=== PATIENT | male | born 1995 | race Caucasian/White ===

== ENCOUNTER → 2016-10-20 | Outpatient (CLI) | payer BC ==
[2016-10-20 10:58] LABS: Urine RBC None Seen /hpf (0 - 3)
[2016-10-20 11:11] LABS: Basophils # (auto) 0 uL; Basophils % (auto) 0.4 % (0.0-2.0); Eosinophils # (auto) 0.2 uL; Eosinophils % (auto) 2.9 % (0.0-7.0); Hematocrit 47.1 % (41.0-53.0); Hemoglobin 15.9 g/dL (13.5-17.5); Lymphocytes # (auto) 2.9 uL; Lymphocytes % (auto) 35.8 % (10.0-50.0); Mean Corpuscular Hemoglobin 31.4 pg (28.0-32.0); Mean Corpuscular Hgb Conc. 33.7 g/dL (32.0-36.0); Mean Corpuscular Volume 93.1 fL (80.0-100.0); Mean Platelet Volume 9.2 fL (7.4-10.4); Monocytes # (auto) 0.5 uL; Monocytes % (auto) 6.1 % (0.0-12.0); Neutrophils # (auto) 4.5 uL; Neutrophils % (auto) 54.8 % (37.0-80.0); Platelet Count (auto) 299 10^3/uL (140-450); Red Cell Distribution Width 13.8 % (11.6-16.0); White Blood Cell 8.2 10^3/uL (4.4-10.8)
[2016-10-20 11:17] LABS: Urine Bilirubin Negative (Negative); Urine Blood Negative /uL (Negative); Urine Color Yellow (Yellow); Urine Glucose Normal (Normal); Urine Ketone Negative (Negative); Urine Mucus FEW (None Seen); Urine Nitrite Negative (Negative); Urine Squamous Epithelial Cell FEW /hpf (<5); Urine Urobilinogen Normal (Negative); Urine pH 5.5 (5.0-8.0)
[2016-10-20 11:45] LABS: Albumin 3.8 g/dL (3.4-5.0); BUN/Creatinine Ratio 9.3; Bilirubin, Total 0.5 mg/dL (0.2-1.0); Calcium 9.1 mg/dL (8.5-10.1); Potassium 4.2 mmol/L (3.5-5.1); Total Protein 7.3 g/dL (6.4-8.2)
== END | disposition home or self-care (01) ==
LOC: LAB 10:28
PROVIDERS: ATTEND Internal Medicine
DX: N39.0 Urinary tract infection, site not specified (principal); E05.90 Thyrotoxicosis, unspecified without thyrotoxic crisis or storm
CPT/HCPCS: 36415; 80053; 81001; 83036; 84439; 84443; 84481; 85025

== ENCOUNTER 2017-04-02 04:23 | Emergency (ER) | payer BC ==
[~2017-04-02] VITALS: Ht 172.7 cm; Wt 131.5 kg
[2017-04-02 06:45] LABS: Urine RBC None Seen /hpf (0 - 3)
[2017-04-02 06:53] LABS: Basophils # (auto) 0 uL; Basophils % (auto) 0.2 % (0.0-2.0); CONDITION Y; Eosinophils # (auto) 0.1 uL; Eosinophils % (auto) 0.5 % (0.0-7.0); Hematocrit 45.3 % (41.0-53.0); Hemoglobin 15.7 g/dL (13.5-17.5); Lymphocytes # (auto) 1.9 uL; Lymphocytes % (auto) 15.1 % (10.0-50.0); Mean Corpuscular Hemoglobin 32.2 pg (28.0-32.0); Mean Corpuscular Hgb Conc. 34.6 g/dL (32.0-36.0); Mean Corpuscular Volume 93.1 fL (80.0-100.0); Mean Platelet Volume 10.2 fL (7.4-10.4); Monocytes # (auto) 0.5 uL; Monocytes % (auto) 4.4 % (0.0-12.0); Neutrophils # (auto) 9.9 uL; Neutrophils % (auto) 79.8 % (37.0-80.0); Platelet Count (auto) 275 10^3/uL (140-450); Red Cell Distribution Width 14.1 % (11.6-16.0); White Blood Cell 12.4 10^3/uL (4.4-10.8)
[2017-04-02 07:07] LABS: INR 0.95 (0.9-1.15); Partial Thromboplastin Time 26.5 sec (22.64-33.71); Prothrombin Time 10.4 sec (9.37-12.3)
[2017-04-02 07:12] LABS: Albumin 4.2 g/dL (3.4-5.0); Amylase 33 U/L (25-115); Anion Gap 12 (5-15); Aspartate Aminotransferase 11 U/L (15-37); BUN/Creatinine Ratio 7.7; Blood Urea Nitrogen 11 mg/dL (7-18); Calcium 9.2 mg/dL (8.5-10.1); Carbon Dioxide 23 mmol/L (21-32); Chloride 107 mmol/L (98-107); GFR African American 80 mL/min; GFR Non-African American 66 mL/min; Glucose 118 mg/dL (74-106); Magnesium 2.2 mg/dL (1.6-2.6); Potassium 4.1 mmol/L (3.5-5.1); Sodium 142 mmol/L (136-145)
[2017-04-02 07:17] VITALS: BP 149/96
[2017-04-02 07:17] LABS: Alkaline Phosphatase 54 U/L (45-117); Bilirubin, Total 0.5 mg/dL (0.2-1.0); Total Protein 7.6 g/dL (6.4-8.2)
[2017-04-02 07:32] LABS: Urine Blood Negative /uL (Negative); Urine Color Yellow (Yellow); Urine Glucose Normal (Normal); Urine Mucus FEW (None Seen); Urine Nitrite Negative (Negative); Urine pH 5.5 (5.0-8.0)
[2017-04-02 07:33] LABS: Urine Ketone 1+ (Negative)
[2017-04-02 07:35] LABS: Urine Bilirubin Negative (Negative)
[2017-04-02] MEDS ORDERED: KETOROLAC TROMETH 30 MG/ML 1ML VIAL IV ONE (08:00)
[2017-04-02] MEDS ORDERED: SODIUM CHLORIDE 0.9% 1,000 ML IV ONE (08:00)
== END 2017-04-02 09:06 | disposition home or self-care (01) ==
LOC: ER 04:29
DX: N20.0 Calculus of kidney (principal); Z88.0 Allergy status to penicillin
CPT/HCPCS: 36415; 74176; 80053; 81001; 82150; 83690; 83735; 84484; 85025; 85610; 85730; 96361; 96374; 99285; J1885

== ENCOUNTER 2019-05-13 04:51 | Emergency (ER) | payer BC, MEDICAID ==
[~2019-05-13] VITALS: Ht 175.3 cm; Wt 131.5 kg
[2019-05-13] MEDS ORDERED: SODIUM CHLORIDE 0.9% 1,000 ML IV ONE (05:13)
[2019-05-13] MEDS ORDERED: LORazepam 2MG/ML-1ML VIAL IV ONE (05:15)
[2019-05-13] MEDS ORDERED: IOHEXOL 350 MG/ML 100ML IJ ONE (05:54)
[2019-05-13 06:11] LABS: Basophils # (auto) 0.1 uL; Basophils % (auto) 0.6 % (0.0-2.0); Eosinophils # (auto) 0.4 uL; Eosinophils % (auto) 3.4 % (0.0-7.0); Hemoglobin 15.4 g/dL (13.5-17.5); Lymphocytes # (auto) 4.5 uL; Lymphocytes % (auto) 39.9 % (10.0-50.0); Mean Corpuscular Hemoglobin 31.9 pg (28.0-32.0); Mean Corpuscular Hgb Conc. 34.2 g/dL (32.0-36.0); Mean Corpuscular Volume 93.5 fL (80.0-100.0); Monocytes # (auto) 0.6 uL; Monocytes % (auto) 5.2 % (0.0-12.0); Neutrophils # (auto) 5.8 uL; Neutrophils % (auto) 50.9 % (37.0-80.0); Nucleated Red Blood Cells % 0.2 %; Platelet Count (auto) 245 10^3/uL (140-450); Red Blood Cells 4.81 10^6/uL (4.5-5.90); White Blood Cell 11.4 10^3/uL (4.4-10.8)
[2019-05-13 06:14] LABS: Urine Bacteria NONE SEEN /hpf (None Seen); Urine Blood Negative /uL (Negative); Urine Mucus FEW (None Seen); Urine Specific Gravity 1.022 (1.001-1.035); Urine WBC <1 /hpf (0 - 3)
[2019-05-13 06:25] LABS: INR < 0.93 (0.9-1.15); Partial Thromboplastin Time 27.2 sec (23.64-32.05)
[2019-05-13 06:36] LABS: Albumin 3.8 g/dL (3.4-5.0); Anion Gap 7 (5-15); Blood Urea Nitrogen 8 mg/dL (7-18); Calcium 8.5 mg/dL (8.5-10.1); Carbon Dioxide 23 mmol/L (21-32); Chloride 109 mmol/L (98-107); Glucose 123 mg/dL (74-106); Magnesium 2.1 mg/dL (1.6-2.6); Potassium 3.3 mmol/L (3.5-5.1); Sodium 139 mmol/L (136-145)
[2019-05-13 06:43] LABS: Alanine Aminotransferase 37 U/L (16-61); Alkaline Phosphatase 45 U/L (45-117); Aspartate Aminotransferase 16 U/L (15-37); BUN/Creatinine Ratio 8.2; Bilirubin, Total 0.5 mg/dL (0.2-1.0); GFR African American 121 mL/min; GFR Non-African American 100 mL/min
[2019-05-13] MEDS ORDERED: KETOROLAC TROMETH 30 MG/ML 1ML VIAL IV ONE (06:45)
[2019-05-13 07:29] VITALS: BP 130/82
== END 2019-05-13 07:32 | disposition home or self-care (01) ==
LOC: ER 04:51 → EEVIPCON 04:51 → ER 07:32
DX: R07.89 Other chest pain (principal); Z88.0 Allergy status to penicillin
CPT/HCPCS: 36415; 71045; 71275; 80053; 81001; 83735; 83880; 84484; 85025; 85379; 85610; 85730; 96374; 96375; 99284; J1885; J2060; Q9967; 93005

== ENCOUNTER 2019-10-13 21:31 | Emergency (ER) | payer BC ==
[~2019-10-13] VITALS: Ht 175.3 cm; Wt 136.1 kg
[2019-10-13 22:30] VITALS: BP 135/85
[2019-10-13 22:40] LABS: Basophils # (auto) 0.1 uL; Basophils % (auto) 0.6 % (0.0-2.0); Eosinophils # (auto) 0.3 uL; Eosinophils % (auto) 2.9 % (0.0-7.0); Hematocrit 47.6 % (41.0-53.0); Hemoglobin 16.3 g/dL (13.5-17.5); Lymphocytes # (auto) 3.6 uL; Lymphocytes % (auto) 32.4 % (10.0-50.0); Mean Corpuscular Hemoglobin 31.5 pg (28.0-32.0); Mean Corpuscular Hgb Conc. 34.2 g/dL (32.0-36.0); Monocytes # (auto) 0.6 uL; Monocytes % (auto) 4.9 % (0.0-12.0); Neutrophils # (auto) 6.6 uL; Neutrophils % (auto) 59.2 % (37.0-80.0); Nucleated Red Blood Cells % 0.1 %; Platelet Count (auto) 254 10^3/uL (140-450); Red Blood Cells 5.17 10^6/uL (4.5-5.90); Red Cell Distribution Width 13.1 % (11.8-14.3); White Blood Cell 11.2 10^3/uL (4.4-10.8)
[2019-10-13 22:56] LABS: Albumin 4.2 g/dL (3.4-5.0); Anion Gap 7 (5-15); Blood Urea Nitrogen 9 mg/dL (7-18); Calcium 9.1 mg/dL (8.5-10.1); Carbon Dioxide 26 mmol/L (21-32); Chloride 106 mmol/L (98-107); Glucose 95 mg/dL (74-106); Magnesium 2.1 mg/dL (1.6-2.6); Potassium 3.7 mmol/L (3.5-5.1); Sodium 139 mmol/L (136-145)
[2019-10-13 23:02] LABS: Alanine Aminotransferase 35 U/L (16-61); Alkaline Phosphatase 56 U/L (45-117); Aspartate Aminotransferase 15 U/L (15-37); BUN/Creatinine Ratio 8.6; Bilirubin, Total 0.5 mg/dL (0.2-1.0); GFR African American 111 mL/min; GFR Non-African American 91 mL/min; Total Protein 8.1 g/dL (6.4-8.2)
== END 2019-10-14 00:14 | disposition home or self-care (01) ==
LOC: ER 21:32 → EEVIPCON 21:32 → ER 10-14 00:14
DX: F41.9 Anxiety disorder, unspecified (principal); Z88.0 Allergy status to penicillin; Z95.1 Presence of aortocoronary bypass graft
CPT/HCPCS: 36415; 71045; 80053; 83735; 84484; 85025; 93005

== ENCOUNTER → 2019-12-09 | Outpatient (CLI) | payer BC, OTHER | END | disposition home or self-care (01) | LOC: LAB 08:35 | PROVIDERS: ATTEND Nurse Practitioner Family | DX: Z03.818 Encounter for observation for suspected exposure to other biological agents ruled out (principal) | CPT/HCPCS: C9803; U0003 ==

== ENCOUNTER 2020-02-08 08:37 | Emergency (ER) | payer BC ==
[~2020-02-08] VITALS: Ht 175.3 cm; Wt 136.1 kg
[2020-02-08] MEDS ORDERED: SODIUM CHLORIDE 0.9% 1,000 ML IV ONE (08:47)
[2020-02-08 08:57] LABS: Basophils # (auto) 0.1 10 ^3/uL (0-0.2); Basophils % (auto) 0.7 % (0.0-2.0); Eosinophils # (auto) 0.2 10 ^3/uL (0-0.8); Eosinophils % (auto) 1.5 % (0.0-7.0); Hematocrit 48.9 % (41.0-53.0); Hemoglobin 16.7 g/dL (13.5-17.5); Lymphocytes # (auto) 5.8 10 ^3/uL (0.4-5.4); Lymphocytes % (auto) 52.7 % (10.0-50.0); Mean Corpuscular Hgb Conc. 34.1 g/dL (32.0-36.0); Mean Corpuscular Volume 90.9 fL (80.0-100.0); Monocytes % (auto) 8.8 % (0.0-12.0); Neutrophils % (auto) 36.3 % (37.0-80.0); Nucleated Red Blood Cells % 0.5 %; Platelet Count (auto) 222 10^3/uL (140-450); Red Blood Cells 5.39 10^6/uL (4.5-5.90); Red Cell Distribution Width 13.6 % (11.8-14.3)
[2020-02-08] MEDS ORDERED: ASPirin 81 mg TAB PO ONE (09:00)
[2020-02-08 09:13] LABS: Albumin 3.8 g/dL (3.4-5.0); Anion Gap 10 (5-15); Blood Urea Nitrogen 9 mg/dL (7-18); Calcium 8.6 mg/dL (8.5-10.1); Carbon Dioxide 19 mmol/L (21-32); Chloride 110 mmol/L (98-107); Glucose 107 mg/dL (74-106); Magnesium 2.3 mg/dL (1.6-2.6); Potassium 3.8 mmol/L (3.5-5.1); Sodium 139 mmol/L (136-145)
[2020-02-08 09:19] LABS: Alanine Aminotransferase 50 U/L (16-61); Alkaline Phosphatase 63 U/L (45-117); Aspartate Aminotransferase 27 U/L (15-37); BUN/Creatinine Ratio 6.8; Bilirubin, Total 0.8 mg/dL (0.2-1.0); GFR African American 85 mL/min; GFR Non-African American 70 mL/min; Total Protein 7.5 g/dL (6.4-8.2)
[2020-02-08 10:11] LABS: Partial Thromboplastin Time 26.5 sec (23.64-32.05)
[2020-02-08 10:25] LABS: Urine Bacteria NONE SEEN /hpf (None Seen); Urine Blood Negative /uL (Negative); Urine Mucus FEW (None Seen); Urine Specific Gravity 1.015 (1.001-1.035); Urine WBC 1 /hpf (0 - 3)
[2020-02-08] MEDS ORDERED: IOHEXOL 350 MG/ML 100ML IJ ONE (12:10)
[2020-02-08 13:34] VITALS: BP 111/66
== END 2020-02-08 13:36 | disposition home or self-care (01) ==
LOC: ER 08:37 → EEVIPCON 08:37 → ER 13:36
DX: R07.89 Other chest pain (principal); R00.0 Tachycardia, unspecified; R79.89 Other specified abnormal findings of blood chemistry
CPT/HCPCS: 36415; 71046; 71275; 80053; 81001; 83735; 84443; 84484; 85025; 85379; 85610; 85730; 93005; 99285; Q9967

== ENCOUNTER → 2020-04-16 | Outpatient (CLI) | payer OTHER | END | disposition home or self-care (01) | LOC: LAB 08:12 | PROVIDERS: ATTEND Nurse Practitioner Family | DX: Z20.828 Contact with and (suspected) exposure to other viral communicable diseases (principal) ==

== ENCOUNTER 2020-04-18 19:59 | Inpatient (IN) | payer BC, OTHER ==
[~2020-04-18] VITALS: Ht 175.3 cm; Wt 135.2 kg
[2020-04-18] MEDS ORDERED: cefTRIAXone 1GM/50ML D5W 50 ML IV ONE (23:30)
[2020-04-18] MEDS ORDERED: SODIUM CHLORIDE 0.9% 4,100 ML IV ONE (23:45)
[2020-04-18] MEDS ORDERED: VANCOMYCIN 1GM/250ML 250 ML IV ONE (23:55)
[2020-04-19] MEDS ORDERED: SODIUM CHLORIDE 0.9% 1,000 ML IV ONE
[2020-04-19 00:20] LABS: Basophils # (auto) 0 10 ^3/uL (0-0.2); Basophils % (auto) 0.2 % (0.0-2.0); Eosinophils # (auto) 0 10 ^3/uL (0-0.8); Eosinophils % (auto) 0.5 % (0.0-7.0); Hematocrit 45.2 % (41.0-53.0); Hemoglobin 15.1 g/dL (13.5-17.5); Lymphocytes # (auto) 3.4 10 ^3/uL (0.4-5.4); Lymphocytes % (auto) 45.6 % (10.0-50.0); Mean Corpuscular Hemoglobin 30.8 pg (28.0-32.0); Mean Corpuscular Hgb Conc. 33.4 g/dL (32.0-36.0); Mean Corpuscular Volume 92.3 fL (80.0-100.0); Monocytes # (auto) 0.5 10 ^3/uL (0-1.3); Monocytes % (auto) 6.4 % (0.0-12.0); Neutrophils # (auto) 3.6 10 ^3/uL (1.6-8.6); Neutrophils % (auto) 47.3 % (37.0-80.0); Nucleated Red Blood Cells % 0.1 %; Platelet Count (auto) 223 10^3/uL (140-450); Red Cell Distribution Width 13.8 % (11.8-14.3); White Blood Cell 7.5 10^3/uL (4.4-10.8)
[2020-04-19 00:40] LABS: Alanine Aminotransferase 34 U/L (16-61); Albumin 3.8 g/dL (3.4-5.0); Anion Gap 6 (5-15); Aspartate Aminotransferase 24 U/L (15-37); BUN/Creatinine Ratio 6.3; Blood Urea Nitrogen 7 mg/dL (7-18); Calcium 8.7 mg/dL (8.5-10.1); Carbon Dioxide 27 mmol/L (21-32); Chloride 104 mmol/L (98-107); GFR African American 103 mL/min; GFR Non-African American 85 mL/min; Glucose 92 mg/dL (74-106); Potassium 3.7 mmol/L (3.5-5.1); Sodium 137 mmol/L (136-145)
[2020-04-19 00:45] LABS: Alkaline Phosphatase 56 U/L (45-117); Bilirubin, Total 0.4 mg/dL (0.2-1.0); Total Protein 8.5 g/dL (6.4-8.2)
[2020-04-19] MEDS ORDERED: DexAMETHasone SOD PHOS 10MG/1ML VIAL INJ IV ONE (00:45)
[2020-04-19] MEDS ORDERED: VANCOMYCIN 1GM/250ML 250 ML IV ONE (01:00)
[2020-04-19 01:28] LABS: INR 0.9 (0.9-1.15); Partial Thromboplastin Time 29.3 sec (23.0-31.2)
[2020-04-19] MEDS ORDERED: SODIUM CHLORIDE 0.9% 1,000 ML IV SCH (02:37)
[2020-04-19] MEDS ORDERED: ACETAMINOPHEN 325 MG TAB PO PRN (02:45)
[2020-04-19] MEDS ORDERED: MORPHINE SULF INJ 2 MG/ML SYRINGE 1ML IV PRN (02:45)
[2020-04-19] MEDS ORDERED: NITROGLYCERIN 0.4 MG SL TAB SL PRN (02:45)
[2020-04-19] MEDS ORDERED: ONDANSETRON HCL 4 MG/2 ML VIAL IV PRN (02:45)
[2020-04-19] MEDS ORDERED: TEMAZEPAM 15 MG CAP PO PRN (02:45)
[2020-04-19 03:10] LABS: Magnesium 2.3 mg/dL (1.6-2.6)
[2020-04-19 03:15] LABS: Urine Bacteria FEW /hpf (None Seen); Urine Blood Negative /uL (Negative); Urine Mucus FEW (None Seen); Urine Specific Gravity 1.007 (1.001-1.035); Urine WBC <1 /hpf (0 - 3)
[2020-04-19 03:49] VITALS: BP 141/88
[2020-04-19] MEDS: ALBUTEROL SULF HFA 90MCG INH 200DOSE IN SCH ×3 (07:30→21:22)
--- NOTE | 2020-04-19 07:30 | NUR ---
Respiratory note: ASSESSED PT , PT WAS ASLEEP, NO RESP DISTRESS NOTED. HR 79, RR 18, SPO2 94% ON 2L N/C. BS ARE CLEAR AND DIMINISHED. NO MDI'S AT BEDSIDE AT THIS TIME. PT IS STILL PENDING COVID RESULTS. WILL CONTINUE TO MONITOR.
[2020-04-19] MEDS ORDERED: VANCOMYCIN 1GM/250ML 250 ML IV SCH (10:00)
[2020-04-19] MEDS ORDERED: ENOXAPARIN SOD 40 MG/0.4 ML SYRINGE SC SCH (10:00)
[2020-04-19] MEDS: DexAMETHasone SOD PHOS 10MG/1ML VIAL INJ IV SCH (10:21)
[2020-04-19] MEDS: DOXYCYCLINE 100MG/250ML 250 ML IV SCH ×2 (10:21→21:45)
[2020-04-19] MEDS: ZINC SULFATE 220mg CAP or TAB PO SCH (10:22)
[2020-04-19] MEDS: FAMOTIDINE 20 MG TAB PO SCH ×2 (10:22→21:45)
[2020-04-19] MEDS: ASCORBIC ACID 1,000 MG TAB PO SCH (10:22)
[2020-04-19] MEDS: CHOLECALCIFEROL (VITD3) 2,000 UNIT CAP PO SCH (10:22)
[2020-04-19] MEDS ORDERED: CEFTRIAXONE SODIUM 2 GM in D5W 5% 50 ML IV ONE (11:15)
[2020-04-19] MEDS ORDERED: cefTRIAXone 1GM/50ML D5W 50 ML IV ONE (13:13)
--- NOTE | 2020-04-19 17:45 | NUR ---
Telemetry admit from ER LEA CAMPOS admitted to Telemetry unit after SBAR received. Patient oriented to Wendy Mina, primary RN, unit, room, bed, and unit policies regarding patient care and visiting hours. Patient now on continuous telemetry monitoring, tele box #18 and telemetry reading on arrival to unit is SR @ 98 BPM. Bed set to lowest position/locked, bedside rails up x2, call light within reach. Instructed patient to call for assistance. Patient verbalized understanding. Will continue to monitor Q1hr and PRN.
[2020-04-19 18:05] VITALS: BP 120/65
--- NOTE | 2020-04-19 19:25 | NUR ---
opening note pt resting in semi fowlers with HOB at 30 degrees. respirations even and nonlabored on room air. pt denies pain or discomfort at this time, will continue to monitor. POC discussed with pt, and pt verbalized understanding. bed in low locked position, call light within reach.
[2020-04-19] MEDS: BUDESONIDE (INHALATION) 0.5 MG/2 ML NEB NEB SCH (21:22)
[2020-04-19] MEDS: ENOXAPARIN SOD 40 MG/0.4 ML SYRINGE SC SCH (21:50)
[2020-04-19 22:00] VITALS: BP 110/64
[2020-04-20 05:00] VITALS: BP 93/49
[2020-04-20] MEDS: ALBUTEROL SULF HFA 90MCG INH 200DOSE IN SCH ×2 (06:00→21:44)
--- NOTE | 2020-04-20 06:18 | NUR ---
Respiratory note: MEDICATION HELD UNTIL COVID RESULTS ARE BACK. HR 65, RR 16, POX 97% ON RA. NO SOB OR DISTRESS NOTED.
[2020-04-20 07:01] VITALS: BP 127/76
[2020-04-20 07:17] LABS: Basophils # (auto) 0 10 ^3/uL (0-0.2); Eosinophils # (auto) 0 10 ^3/uL (0-0.8); Hematocrit 41.9 % (41.0-53.0); Hemoglobin 14.4 g/dL (13.5-17.5); Lymphocytes # (auto) 1.7 10 ^3/uL (0.4-5.4); Lymphocytes % (auto) 25.8 % (10.0-50.0); Mean Corpuscular Hemoglobin 31.2 pg (28.0-32.0); Mean Corpuscular Hgb Conc. 34.3 g/dL (32.0-36.0); Monocytes # (auto) 0.5 10 ^3/uL (0-1.3); Monocytes % (auto) 7.3 % (0.0-12.0); Neutrophils # (auto) 4.4 10 ^3/uL (1.6-8.6); Neutrophils % (auto) 66.9 % (37.0-80.0); Nucleated Red Blood Cells % 0.2 %; Platelet Count (auto) 267 10^3/uL (140-450); Red Blood Cells 4.61 10^6/uL (4.5-5.90); Red Cell Distribution Width 13.6 % (11.8-14.3); White Blood Cell 6.6 10^3/uL (4.4-10.8)
--- NOTE | 2020-04-20 07:19 | NUR ---
closing note pt resting in semi left lateral position. respirations even and nonlabored on room air. no complaints pain, discomfort, or any other symptoms. endorsed care to day shift rn Yudi.
--- NOTE | 2020-04-20 07:20 | NUR ---
OPENING NOTE ASSUMED CARE OF PT. ALERT AND ORIENTED. NO S/S OF SOB/DISTRESS NOTED. BED SET TO LOWEST POSITION/LOCKED. BEDSIDE RAILS UP X2. CALL LIGHT WITHIN REACH. INSTRUCTED PT TO CALL FOR ASSISTANCE. UPDATED ON POC. PT VERBALIZED UNDERSTANDING. WILL CONTINUE TO MONITOR Q1HR AND PRN.
[2020-04-20 07:32] LABS: Albumin 3.1 g/dL (3.4-5.0); Calcium 8.3 mg/dL (8.5-10.1); Potassium 3.8 mmol/L (3.5-5.1)
[2020-04-20 07:40] LABS: BUN/Creatinine Ratio 11.8; Bilirubin, Total 0.3 mg/dL (0.2-1.0); CRP High Sensitivity 2.39 mg/dL (< 0.3); Total Protein 7.2 g/dL (6.4-8.2)
[2020-04-20 09:00] VITALS: BP 132/77
[2020-04-20] MEDS: DexAMETHasone SOD PHOS 10MG/1ML VIAL INJ IV SCH (09:04)
[2020-04-20] MEDS: cefTRIAXone 1GM/50ML D5W 50 ML IV SCH (09:04)
[2020-04-20] MEDS: ZINC SULFATE 220mg CAP or TAB PO SCH (09:04)
[2020-04-20] MEDS: DOXYCYCLINE 100MG/250ML 250 ML IV SCH ×2 (09:04→21:51)
[2020-04-20] MEDS: ASCORBIC ACID 1,000 MG TAB PO SCH (09:05)
[2020-04-20] MEDS: ENOXAPARIN SOD 40 MG/0.4 ML SYRINGE SC SCH ×2 (09:05→21:51)
[2020-04-20] MEDS: CHOLECALCIFEROL (VITD3) 2,000 UNIT CAP PO SCH (09:05)
[2020-04-20] MEDS: FAMOTIDINE 20 MG TAB PO SCH ×2 (09:05→21:51)
[2020-04-20] MEDS: BUDESONIDE (INHALATION) 0.5 MG/2 ML NEB NEB SCH (09:42)
[2020-04-20] MEDS ORDERED: ALBUTEROL SULF 2.5 MG/0.5ML(0.5%) NEB SOLN NEB SCH (12:00)
[2020-04-20 13:00] VITALS: BP 109/60
[2020-04-20] MEDS ORDERED: CYANOCOBALAMIN (B-12) 1000 MCG/1 ML VIAL SUBCUT ONE (15:15)
[2020-04-20] MEDS ORDERED: FUROSEMIDE 40 MG/4 ML VIAL IV ONE (15:15)
[2020-04-20 17:00] VITALS: BP 127/67
--- NOTE | 2020-04-20 20:00 | NUR ---
Opening Shift Note Assumed care of patient. Awake, alert and oriented x4. No S/S of distress/SOB or pain. Pt is laying down in bed, on room air with even and unlabored respirations. Instructed on POC and to call for assist PRN. Bed locked, in lowest position, call light within reach, side rails up x2. Will continue to monitor for changes Q1hr and PRN.
[2020-04-20] MEDS: BUDESONIDE (INHALATION) 180 MCG IH IN SCH (21:44)
[2020-04-20 22:00] VITALS: BP 133/85
[2020-04-20] MEDS ORDERED: BUDESONIDE (INHALATION) 0.5 MG/2 ML NEB NEB SCH (22:00)
[2020-04-21] VITALS (7 sets, daily range): BP systolic 90–142; BP diastolic 43–77
--- NOTE | 2020-04-21 07:30 | NUR ---
Opening Shift Note Assumed care of patient, awake and alert. No S/S of distress/SOB or pain. Instructed on POC and to call for assist PRN, will continue to monitor for changes Q1hr and PRN. Fall precautions in place per safety protocol.
[2020-04-21] MEDS: ALBUTEROL SULF HFA 90MCG INH 200DOSE IN SCH ×3 (07:36→21:37)
[2020-04-21] MEDS: BUDESONIDE (INHALATION) 180 MCG IH IN SCH ×2 (07:36→21:37)
[2020-04-21] MEDS: cefTRIAXone 1GM/50ML D5W 50 ML IV SCH (09:20)
[2020-04-21] MEDS: ZINC SULFATE 220mg CAP or TAB PO SCH (09:20)
[2020-04-21] MEDS: FAMOTIDINE 20 MG TAB PO SCH ×2 (09:20→21:20)
[2020-04-21] MEDS: DexAMETHasone SOD PHOS 10MG/1ML VIAL INJ IV SCH (09:20)
[2020-04-21] MEDS: CYANOCOBALAMIN 500 MCG TAB PO SCH (09:21)
[2020-04-21] MEDS: ENOXAPARIN SOD 40 MG/0.4 ML SYRINGE SC SCH ×2 (09:21→21:20)
[2020-04-21] MEDS: CHOLECALCIFEROL (VITD3) 2,000 UNIT CAP PO SCH (09:21)
[2020-04-21] MEDS: ASCORBIC ACID 1,000 MG TAB PO SCH (09:21)
[2020-04-21] MEDS: DOXYCYCLINE 100MG/250ML 250 ML IV SCH ×2 (10:20→21:20)
--- NOTE | 2020-04-21 12:39 | NUR ---
Est energy needs 4963-9656 kcal (11-14kcal/kg BW 135.6kg) Est protein needs 73-95g (1-1.3g/kg IBW 72.7kg) Will reassess prn Addendum: 04/21/20 at [address] Amended: Links added.
--- NOTE | 2020-04-21 19:26 | NUR ---
Opening Shift Note Assumed care of patient after receiving report from DI Vaz. Patient is awake and alert with no S/S of distress/SOB or pain. Breathing comfortably on RA. Call light within reach, bed in lowest locked position x2 side rails, HOB semi fowlers. Instructed on POC and to call for assist PRN, will continue to monitor for changes Q1hr and PRN.
[2020-04-22 05:00] VITALS: BP 111/64
[2020-04-22] MEDS: BUDESONIDE (INHALATION) 180 MCG IH IN SCH (07:33)
[2020-04-22] MEDS: ALBUTEROL SULF HFA 90MCG INH 200DOSE IN SCH (07:33)
[2020-04-22 09:00] VITALS: BP 124/82
[2020-04-22] MEDS: cefTRIAXone 1GM/50ML D5W 50 ML IV SCH (09:31)
[2020-04-22] MEDS: ZINC SULFATE 220mg CAP or TAB PO SCH (09:31)
[2020-04-22] MEDS: FAMOTIDINE 20 MG TAB PO SCH (09:31)
[2020-04-22] MEDS: DexAMETHasone SOD PHOS 10MG/1ML VIAL INJ IV SCH (09:31)
[2020-04-22] MEDS: CYANOCOBALAMIN 500 MCG TAB PO SCH (09:31)
[2020-04-22] MEDS: ASCORBIC ACID 1,000 MG TAB PO SCH (09:32)
[2020-04-22] MEDS: ENOXAPARIN SOD 40 MG/0.4 ML SYRINGE SC SCH (09:32)
[2020-04-22] MEDS: CHOLECALCIFEROL (VITD3) 2,000 UNIT CAP PO SCH (09:32)
[2020-04-22] MEDS: DOXYCYCLINE 100MG/250ML 250 ML IV SCH (11:33)
[2020-04-22] MEDS ORDERED: CYANOCOBALAMIN (B-12) 1000 MCG/1 ML VIAL SUBCUT ONE (12:00)
[2020-04-22 13:00] VITALS: BP 111/75
[2020-04-22 13:07] VITALS: BP 111/75
--- NOTE | 2020-04-22 13:40 | NUR ---
Discharge instructions given as ordered. Encourage to follow up with PMD as instructed. All questions and concerns addressed. Patient verbalized understanding. Medication reconciliation form completed and copy given to patient. IV removed with catheter intact, pressure dressing applied. Telemetry unit returned to ICU. Patient taken to vehicle via wheelchair with all personal belongings, accompanied by staff. No distress noted at time of departure.
== END 2020-04-22 13:40 | disposition home or self-care (01) | DRG 177 ==
LOC: ER 19:59 → EEVIPCON 19:59 → TELE 20:00 → TELE-EAST 04-19 18:17
PROVIDERS: ADMIT Nurse Practitioner; ATTEND Internal Medicine
DX: U07.1 COVID-19 (principal); J12.89 Other viral pneumonia; Z68.41 Body mass index [BMI] 40.0-44.9, adult; E53.8 Deficiency of other specified B group vitamins; E66.01 Morbid (severe) obesity due to excess calories; Z80.9 Family history of malignant neoplasm, unspecified; Z82.49 Family history of ischemic heart disease and other diseases of the circulatory system; Z83.3 Family history of diabetes mellitus; Z95.1 Presence of aortocoronary bypass graft; Z88.0 Allergy status to penicillin
CPT/HCPCS: 36415; 71045; 80053; 80061; 81001; 82607; 82728; 83036; 83605; 83615; 83735; 83880; 84443; 84484; 85025; 85379; 85384; 85610; 85730; 86141; 86738; 87040; 87086; 87278; 87426; 94640; G0378; J0696; J1100; J3490; J7060

== ENCOUNTER 2020-06-22 23:37 | Emergency (ER) | payer BC ==
[~2020-06-22] VITALS: Ht 175.3 cm; Wt 136.1 kg
[2020-06-23 00:03] VITALS: BP 124/76
[2020-06-23 00:58] LABS: Basophils # (auto) 0 10 ^3/uL (0-0.2); Basophils % (auto) 0.4 % (0.0-2.0); Eosinophils # (auto) 0.2 10 ^3/uL (0-0.8); Eosinophils % (auto) 2.8 % (0.0-7.0); Hematocrit 42.3 % (41.0-53.0); Hemoglobin 14.8 g/dL (13.5-17.5); Lymphocytes # (auto) 3.2 10 ^3/uL (0.4-5.4); Lymphocytes % (auto) 39.9 % (10.0-50.0); Mean Corpuscular Hemoglobin 31.7 pg (28.0-32.0); Mean Corpuscular Hgb Conc. 34.9 g/dL (32.0-36.0); Mean Corpuscular Volume 90.8 fL (80.0-100.0); Monocytes # (auto) 0.6 10 ^3/uL (0-1.3); Neutrophils # (auto) 3.9 10 ^3/uL (1.6-8.6); Neutrophils % (auto) 49.9 % (37.0-80.0); Nucleated Red Blood Cells % 0.1 %; Platelet Count (auto) 241 10^3/uL (140-450); Red Blood Cells 4.66 10^6/uL (4.5-5.90); Red Cell Distribution Width 13.8 % (11.8-14.3); White Blood Cell 7.9 10^3/uL (4.4-10.8)
[2020-06-23 01:17] LABS: Albumin 3.8 g/dL (3.4-5.0); Anion Gap 7 (5-15); Blood Urea Nitrogen 13 mg/dL (7-18); Calcium 8.6 mg/dL (8.5-10.1); Carbon Dioxide 25 mmol/L (21-32); Chloride 106 mmol/L (98-107); Glucose 118 mg/dL (74-106); Potassium 3.7 mmol/L (3.5-5.1); Sodium 138 mmol/L (136-145)
[2020-06-23 01:19] LABS: Alanine Aminotransferase 36 U/L (16-61); Aspartate Aminotransferase 16 U/L (15-37); BUN/Creatinine Ratio 13.1; GFR African American 118 mL/min; GFR Non-African American 97 mL/min
[2020-06-23 01:26] LABS: Alkaline Phosphatase 54 U/L (45-117); Bilirubin, Total 0.4 mg/dL (0.2-1.0); Total Protein 7.2 g/dL (6.4-8.2)
[2020-06-23] MEDS ORDERED: IOHEXOL 350 MG/ML 100ML IJ ONE (01:31)
[2020-06-23] MEDS ORDERED: AZITHROMYCIN 250 MG TAB PO ONE (03:15)
[2020-06-23] MEDS ORDERED: ALBUTEROL SULF 2.5 MG/0.5ML(0.5%) NEB SOLN NEB ONE (03:15)
[2020-06-23] MEDS ORDERED: IPRATROPIUM BROM 0.5 MG/2.5ML INH SOL NEB ONE (03:15)
== END 2020-06-23 03:58 | disposition home or self-care (01) ==
LOC: ER 23:37 → EEVIPCON 23:37 → ER 06-23 03:58
DX: J06.9 Acute upper respiratory infection, unspecified (principal); Z20.828 Contact with and (suspected) exposure to other viral communicable diseases
CPT/HCPCS: 36415; 71275; 80053; 84484; 85025; 85379; 87426; 93005; 94640; 99285; Q9967

== ENCOUNTER → 2020-07-13 | Outpatient (CLI) | payer BC ==
[~2020-07-13] MED LIST: ALBUTEROL SULF 2.5 MG/0.5ML(0.5%) NEB SOLN ONE
== END | disposition home or self-care (01) ==
LOC: RT 08:58
PROVIDERS: ATTEND Internal Medicine Pulmonary Disease
DX: R06.00 Dyspnea, unspecified (principal)
CPT/HCPCS: 94060; 94727; 94729

== ENCOUNTER → 2020-07-19 | Outpatient (CLI) | payer OTHER | END | disposition home or self-care (01) | LOC: LAB 07:29 | PROVIDERS: ATTEND Nurse Practitioner Family | DX: Z20.828 Contact with and (suspected) exposure to other viral communicable diseases (principal) | CPT/HCPCS: C9803; U0003 ==

== ENCOUNTER 2020-09-16 15:54 | Emergency (ER) | payer BC, OTHER ==
[~2020-09-16] VITALS: Ht 175.3 cm; Wt 136.1 kg
[2020-09-16 18:43] VITALS: BP 143/93
== END 2020-09-16 19:19 | disposition home or self-care (01) ==
LOC: ER 15:54
DX: R50.83 Postvaccination fever (principal); T88.1XXA Other complications following immunization, not elsewhere classified, initial encounter; R05 Cough; Z95.1 Presence of aortocoronary bypass graft; Z20.822 Contact with and (suspected) exposure to COVID-19
CPT/HCPCS: 36415; 71045; 87426

== ENCOUNTER 2021-10-13 19:29 | Emergency (ER) | payer BC, MEDICAID ==
[~2021-10-13] VITALS: Ht 175.3 cm; Wt 145.1 kg
[2021-10-13 20:05] VITALS: BP 143/92
[2021-10-13] MEDS ORDERED: KETOROLAC TROMETH 30 MG/ML 1ML VIAL IV ONE (20:45)
[2021-10-13 21:06] LABS: Basophils # (auto) 0.1 10 ^3/uL (0-0.2); Basophils % (auto) 1.5 % (0.0-2.0); Eosinophils # (auto) 0.4 10 ^3/uL (0-0.8); Eosinophils % (auto) 4.3 % (0.0-7.0); Hemoglobin 15.3 g/dL (13.5-17.5); Lymphocytes # (auto) 3.1 10 ^3/uL (0.4-5.4); Lymphocytes % (auto) 32.9 % (10.0-50.0); Mean Corpuscular Hgb Conc. 34.1 g/dL (32.0-36.0); Mean Corpuscular Volume 90.9 fL (80.0-100.0); Monocytes # (auto) 0.6 10 ^3/uL (0-1.3); Monocytes % (auto) 6.1 % (0.0-12.0); Neutrophils # (auto) 5.3 10 ^3/uL (1.6-8.6); Neutrophils % (auto) 55.2 % (37.0-80.0); Nucleated Red Blood Cells % 0.2 %; Red Blood Cells 4.95 10^6/uL (4.5-5.90); Red Cell Distribution Width 13.5 % (11.8-14.3); White Blood Cell 9.6 10^3/uL (4.4-10.8)
[2021-10-13 21:22] LABS: Albumin 4.4 g/dL (3.4-5.0); Calcium 9.5 mg/dL (8.5-10.1); Potassium 3.7 mmol/L (3.5-5.1)
[2021-10-13 21:26] LABS: Bilirubin, Total 0.7 mg/dL (0.2-1.0); Total Protein 7.9 g/dL (6.4-8.2); Uric Acid 9.6 mg/dL (3.5-7.2)
[2021-10-14] MEDS ORDERED: NAP500T PO (18:31)
[2021-10-14] MEDS ORDERED: PROB500T9 PO (18:31)
== END 2021-10-13 23:15 | disposition home or self-care (01) ==
LOC: ER 19:33
DX: M10.071 Idiopathic gout, right ankle and foot (principal); J45.909 Unspecified asthma, uncomplicated; Z95.1 Presence of aortocoronary bypass graft; Z90.89 Acquired absence of other organs; Z88.0 Allergy status to penicillin
CPT/HCPCS: 36415; 80053; 84550; 85025; 96374; 99284; J1885

== ENCOUNTER 2021-11-12 18:32 | Emergency (ER) | payer BC ==
[~2021-11-12] VITALS: Ht 175.3 cm; Wt 142.9 kg
[~2021-11-12 18:32] MED LIST changes: -ALBUTEROL SULF 2.5 MG/0.5ML(0.5%) NEB SOLN ONE; +NAP500T PO; +PROB500T9 PO
[2021-11-12] MEDS ORDERED: IBUPROFEN 800 MG TAB PO ONE (18:45)
[2021-11-12] MEDS ORDERED: COLCHICINE 0.6 MG CAP PO ONE ×2 (19:15)
[2021-11-12 20:00] VITALS: BP 140/87
== END 2021-11-12 20:10 | disposition home or self-care (01) ==
LOC: ER 18:32
DX: M10.071 Idiopathic gout, right ankle and foot (principal); Z90.89 Acquired absence of other organs; Z95.1 Presence of aortocoronary bypass graft; Z88.0 Allergy status to penicillin

== ENCOUNTER 2022-01-01 09:07 | Day surgery (SDC) | payer BC, MEDICAID ==
[2021-12-30 13:52] LABS: Urine WBC None Seen /hpf (0 - 3)
[2021-12-30 13:56] LABS: Basophils # (auto) 0 10 ^3/uL (0-0.2); Basophils % (auto) 0.6 % (0.0-2.0); Eosinophils # (auto) 0.2 10 ^3/uL (0-0.8); Eosinophils % (auto) 2.8 % (0.0-7.0); Hematocrit 43.5 % (41.0-53.0); Hemoglobin 15.1 g/dL (13.5-17.5); Lymphocytes # (auto) 3.5 10 ^3/uL (0.4-5.4); Lymphocytes % (auto) 50.2 % (10.0-50.0); Mean Corpuscular Hemoglobin 31.3 pg (28.0-32.0); Mean Corpuscular Hgb Conc. 34.7 g/dL (32.0-36.0); Mean Corpuscular Volume 90.3 fL (80.0-100.0); Monocytes # (auto) 0.4 10 ^3/uL (0-1.3); Monocytes % (auto) 6.2 % (0.0-12.0); Neutrophils # (auto) 2.8 10 ^3/uL (1.6-8.6); Neutrophils % (auto) 40.2 % (37.0-80.0); Nucleated Red Blood Cells % 0.1 %; Red Blood Cells 4.82 10^6/uL (4.5-5.90); Red Cell Distribution Width 13.3 % (11.8-14.3)
[2021-12-30 14:11] LABS: INR 0.98 (0.9-1.15); Partial Thromboplastin Time 26.5 sec (23.6-33.0); Urine Bacteria NONE SEEN /hpf (None Seen); Urine Blood Negative /uL (Negative); Urine Mucus FEW (None Seen)
[2021-12-30 14:16] LABS: Albumin 3.9 g/dL (3.4-5.0); Calcium 8.9 mg/dL (8.5-10.1)
[2021-12-30 14:22] LABS: BUN/Creatinine Ratio 8.7; Bilirubin, Total 0.5 mg/dL (0.2-1.0); Total Protein 7.3 g/dL (6.4-8.2)
[~2022-01-01] VITALS: Ht 175.3 cm; Wt 145.1 kg
[~2022-01-01 09:07] MED LIST changes: +PAR20T PO; -PROB500T9 PO
[2022-01-01] MEDS ORDERED: CLINDAMYCIN 600MG IV 50 ML IV ONE (10:12)
[2022-01-01] MEDS ORDERED: LIDOCAINE 1% (LOCAL ANESTH.) PF 5ml SDV ONE ×2 (10:21→10:52)
[2022-01-01] MEDS ORDERED: BUPIVACAINE HCL 50 ML ONE (10:21)
[2022-01-01] MEDS ORDERED: MIDAZOLAM HCL 2MG/2ML 2ml VIAL (1mg/ml) ONE (10:36)
[2022-01-01] MEDS ORDERED: fentaNYL CITRATE 100 MCG/2 ML VL ONE (10:36)
[2022-01-01] MEDS ORDERED: PROPOFOL 10 MG/ML 20 ML IV ONE ×2 (11:18→11:38)
[2022-01-01] MEDS ORDERED: ONDANSETRON HCL 4 MG/2 ML VIAL ONE (11:18)
[2022-01-01] MEDS ORDERED: LIDOCAINE 2% (LOCAL ANESTH.) PF 5ml SDV ONE (11:18)
[2022-01-01] MEDS ORDERED: ONDANSETRON HCL 4 MG/2 ML VIAL IV PRN (11:30)
[2022-01-01] MEDS ORDERED: HYDROmorphone HCL 2 MG/ML VL/or syr IV PRN ×2 (11:30)
[2022-01-01 12:25] VITALS: BP 114/72
== END 2022-01-01 12:30 | disposition home or self-care (01) ==
LOC: SUR 09:07
PROVIDERS: ATTEND Podiatrist
DX: S92.811K Other fracture of right foot, subsequent encounter for fracture with nonunion (principal); M1A.0711 Idiopathic chronic gout, right ankle and foot, with tophus (tophi); F41.9 Anxiety disorder, unspecified; Z90.49 Acquired absence of other specified parts of digestive tract; Z98.890 Other specified postprocedural states; Z79.899 Other long term (current) drug therapy; Z95.1 Presence of aortocoronary bypass graft; Z83.3 Family history of diabetes mellitus; Z20.822 Contact with and (suspected) exposure to COVID-19; X58.XXXD Exposure to other specified factors, subsequent encounter
CPT/HCPCS: 28315; 36415; 73590; 80053; 81001; 85025; 85610; 85730; 88305; 88311; C1713; J2001; J2250; J2405; J2704; J3010; J3490; U0003; 76000

== ENCOUNTER → 2022-07-14 | Outpatient (CLI) | payer BC ==
[2022-07-14 13:18] LABS: Basophils # (auto) 0 10 ^3/uL (0-0.2); Basophils % (auto) 0.5 % (0.0-2.0); Eosinophils # (auto) 0.1 10 ^3/uL (0-0.8); Eosinophils % (auto) 1.5 % (0.0-7.0); Hematocrit 47.7 % (41.0-53.0); Hemoglobin 15.9 g/dL (13.5-17.5); Lymphocytes # (auto) 3.6 10 ^3/uL (0.4-5.4); Lymphocytes % (auto) 44.2 % (10.0-50.0); Mean Corpuscular Hemoglobin 29.9 pg (28.0-32.0); Mean Corpuscular Hgb Conc. 33.3 g/dL (32.0-36.0); Mean Corpuscular Volume 89.9 fL (80.0-100.0); Monocytes # (auto) 0.4 10 ^3/uL (0-1.3); Monocytes % (auto) 5.3 % (0.0-12.0); Neutrophils # (auto) 3.9 10 ^3/uL (1.6-8.6); Neutrophils % (auto) 48.5 % (37.0-80.0); Nucleated Red Blood Cells % 0.1 %; Red Blood Cells 5.31 10^6/uL (4.5-5.90); Red Cell Distribution Width 13.3 % (11.8-14.3); White Blood Cell 8.1 10^3/uL (4.4-10.8)
[2022-07-14 13:32] LABS: Urine Bacteria NONE SEEN /hpf (None Seen); Urine Blood Negative /uL (Negative); Urine Mucus FEW (None Seen); Urine Specific Gravity 1.026 (1.001-1.035); Urine WBC <1 /hpf (0 - 3)
[2022-07-14 13:53] LABS: Albumin 4.1 g/dL (3.4-5.0); BUN/Creatinine Ratio 8.7; Calcium 9.1 mg/dL (8.5-10.1)
[2022-07-14 13:58] LABS: Total Protein 7.7 g/dL (6.4-8.2)
== END | disposition home or self-care (01) ==
LOC: LAB 12:57
PROVIDERS: ATTEND Student in an Organized Health Care Education/Training Program
DX: R73.9 Hyperglycemia, unspecified (principal); E55.9 Vitamin D deficiency, unspecified; R03.0 Elevated blood-pressure reading, without diagnosis of hypertension
CPT/HCPCS: 36415; 80053; 80061; 81001; 82306; 83036; 84443; 85025

== ENCOUNTER 2022-11-10 18:26 | Emergency (ER) | payer BC ==
[~2022-11-10] VITALS: Ht 175.3 cm; Wt 147.0 kg
[2022-11-10] MEDS ORDERED: cloNIDine HCL 0.1 MG TAB ONE (18:40)
[2022-11-10] MEDS ORDERED: cloNIDine HCL 0.1 MG TAB PO ONE (18:45)
[2022-11-10 23:56] VITALS: BP 140/79
== END 2022-11-11 00:11 | disposition home or self-care (01) ==
LOC: ER 18:26 → EEVIPCON 18:26 → ER 11-11 00:10
DX: G43.109 Migraine with aura, not intractable, without status migrainosus (principal); I10 Essential (primary) hypertension; J45.909 Unspecified asthma, uncomplicated; M10.9 Gout, unspecified; Z79.899 Other long term (current) drug therapy; Z88.0 Allergy status to penicillin
CPT/HCPCS: 70450; 93005

== ENCOUNTER → 2023-06-11 | Day surgery (SDC) | payer BC, MEDICAID ==
[2023-06-05 13:31] LABS: Basophils # (auto) 0 10 ^3/uL (0-0.2); Basophils % (auto) 0.4 % (0.0-2.0); Eosinophils # (auto) 0.2 10 ^3/uL (0-0.8); Eosinophils % (auto) 2.1 % (0.0-7.0); Hematocrit 45.1 % (41.0-53.0); Hemoglobin 15.8 g/dL (13.5-17.5); Mean Corpuscular Hemoglobin 31.4 pg (28.0-32.0); Mean Corpuscular Volume 89.7 fL (80.0-100.0); Monocytes # (auto) 0.6 10 ^3/uL (0-1.3); Monocytes % (auto) 6.3 % (0.0-12.0); Neutrophils # (auto) 4.9 10 ^3/uL (1.6-8.6); Neutrophils % (auto) 50.2 % (37.0-80.0); Nucleated Red Blood Cells % 0.4 %; Red Blood Cells 5.03 10^6/uL (4.5-5.90); Red Cell Distribution Width 13.4 % (11.8-14.3); White Blood Cell 9.7 10^3/uL (4.4-10.8)
[2023-06-05 13:39] LABS: Urine Bacteria NONE SEEN /hpf (None Seen); Urine Blood Negative /uL (Negative); Urine Clarity Clear (Clear); Urine Color Yellow (Yellow); Urine Protein, UAD Negative (Negative); Urine Specific Gravity 1.019 (1.001-1.035); Urine Urobilinogen Normal (Negative); Urine WBC 1 /hpf (0 - 3); Urine pH 7.5 (5.0-8.0)
[2023-06-05 13:50] LABS: Alanine Aminotransferase 31 U/L (7-40); Albumin 4.7 g/dL (3.2-4.8); Alkaline Phosphatase 56 U/L (46-116); Anion Gap 9 (5-15); Aspartate Aminotransferase 18 U/L (13-40); BUN/Creatinine Ratio 5.5 (10.0-20.0); Blood Urea Nitrogen 6 mg/dL (9-23); Calcium 9.8 mg/dL (8.5-10.1); Carbon Dioxide 29 mmol/L (20-30); Chloride 104 mmol/L (98-107); Glucose 101 mg/dL (74-106); Sodium 142 mmol/L (136-145)
[2023-06-05 13:51] LABS: Bilirubin, Total 0.6 mg/dL (0.2-1.0)
[2023-06-05 14:24] LABS: INR 0.98 (0.9-1.15); Partial Thromboplastin Time 27.6 SEC (24.5-34.5); Prothrombin Time 10.3 sec (9.3-11.8)
[~2023-06-11] VITALS: Ht 175.3 cm; Wt 145.1 kg
[~2023-06-11] MED LIST changes: +BACITRACIN TOP OINT 1 UD PKG TOP ONE; +LIDOCAINE 1%-Mpf/Epinephrine 1:200,000 30ml VIAL ONE; +MIDAZOLAM HCL 2MG/2ML 2ml VIAL (1mg/ml) ONE; -NAP500T PO; +ONDANSETRON HCL 4 MG/2 ML VIAL ONE; +PROPOFOL 10 MG/ML 20 ML IV ONE; +ROCURONIUM 10MG/ML 10ML VIAL IV ONE; +SUCCINYLCHOLINE CHLORIDE 20 MG/ML 10ML VIAL IV ONE; +ceFAZolin 1GM/50ML 100 ML IV ONE; +fentaNYL CITRATE 5 ML ONE
[2023-06-11 08:40] VITALS: RESP 11; TEMP 97.7; O2SAT 95
[2023-06-11 09:29] VITALS: BP 109/64; PULSE 80; RESP 11; O2SAT 99
== END | disposition home or self-care (01) ==
LOC: SUR 06:15
PROVIDERS: ATTEND Urology
DX: N43.41 Spermatocele of epididymis, single (principal); F41.8 Other specified anxiety disorders; E66.9 Obesity, unspecified; Z68.42 Body mass index [BMI] 45.0-49.9, adult; Z88.0 Allergy status to penicillin; Z95.5 Presence of coronary angioplasty implant and graft; Z83.3 Family history of diabetes mellitus; Z87.01 Personal history of pneumonia (recurrent); Z98.890 Other specified postprocedural states
CPT/HCPCS: 36415; 54840; 80053; 81001; 85025; 85610; 85730; 87086; 88304; J0330; J0690; J2001; J2250; J2405; J2704; J3010

== ENCOUNTER 2023-12-27 12:35 | Emergency (ER) | payer BC ==
[~2023-12-27] VITALS: Ht 175.3 cm; Wt 145.0 kg
[~2023-12-27 12:35] MED LIST changes: -BACITRACIN TOP OINT 1 UD PKG TOP ONE; -LIDOCAINE 1%-Mpf/Epinephrine 1:200,000 30ml VIAL ONE; -MIDAZOLAM HCL 2MG/2ML 2ml VIAL (1mg/ml) ONE; -ONDANSETRON HCL 4 MG/2 ML VIAL ONE; -PROPOFOL 10 MG/ML 20 ML IV ONE; -ROCURONIUM 10MG/ML 10ML VIAL IV ONE; -SUCCINYLCHOLINE CHLORIDE 20 MG/ML 10ML VIAL IV ONE; -ceFAZolin 1GM/50ML 100 ML IV ONE; -fentaNYL CITRATE 5 ML ONE
[2023-12-27 13:05] VITALS: BP 158/88; PULSE 100; RESP 16; TEMP 98; O2SAT 98
[2023-12-27 14:15] LABS: Basophils # (auto) 0 10 ^3/uL (0-0.2); Basophils % (auto) 0.3 % (0.0-2.0); Eosinophils # (auto) 0.1 10 ^3/uL (0-0.8); Eosinophils % (auto) 1.1 % (0.0-7.0); Hematocrit 45.6 % (41.0-53.0); Hemoglobin 15.3 g/dL (13.5-17.5); Lymphocytes # (auto) 2.4 10 ^3/uL (0.4-5.4); Lymphocytes % (auto) 20.4 % (10.0-50.0); Mean Corpuscular Hemoglobin 30.5 pg (28.0-32.0); Mean Corpuscular Hgb Conc. 33.6 g/dL (32.0-36.0); Mean Corpuscular Volume 90.7 fL (80.0-100.0); Monocytes # (auto) 0.7 10 ^3/uL (0-1.3); Monocytes % (auto) 5.6 % (0.0-12.0); Neutrophils # (auto) 8.6 10 ^3/uL (1.6-8.6); Neutrophils % (auto) 72.6 % (37.0-80.0); Red Blood Cells 5.03 10^6/uL (4.5-5.90); Red Cell Distribution Width 13.2 % (11.8-14.3); White Blood Cell 11.8 10^3/uL (4.4-10.8)
[2023-12-27 14:24] LABS: Chloride 108 mmol/L (98-107); Potassium 3.8 mmol/L (3.5-5.1); Sodium 138 mmol/L (136-145)
[2023-12-27 14:25] LABS: Anion Gap 8 (5-15); Calcium 9.4 mg/dL (8.7-10.4); Carbon Dioxide 22 mmol/L (20-30)
[2023-12-27 14:29] LABS: Uric Acid 9.2 mg/dL (3.7-9.2)
[2023-12-27 14:30] LABS: BUN/Creatinine Ratio 7.4 (10.0-20.0); Blood Urea Nitrogen 7 mg/dL (9-23); Glucose 107 mg/dL (74-106)
[2023-12-27] MEDS ORDERED: PRED20TA2 PO (14:52)
[2023-12-27] MEDS ORDERED: NAP500T PO (14:52)
== END 2023-12-27 14:57 | disposition home or self-care (01) ==
LOC: ER 12:35 → EEVIPCON 12:35 → ER 14:57
DX: M79.672 Pain in left foot (principal); J45.909 Unspecified asthma, uncomplicated; M10.9 Gout, unspecified; Z85.9 Personal history of malignant neoplasm, unspecified; Z98.890 Other specified postprocedural states; Z88.0 Allergy status to penicillin; Z79.899 Other long term (current) drug therapy
CPT/HCPCS: 36415; 73610; 73630; 80048; 84550; 85025

== ENCOUNTER 2024-01-04 22:00 | Emergency (ER) | payer BC ==
[~2024-01-04] VITALS: Ht 172.7 cm; Wt 145.0 kg
[~2024-01-04 22:00] MED LIST changes: +NAP500T PO; +PRED20TA2 PO
[2024-01-04] MEDS ORDERED: HYDR-4798 PO (22:31)
[2024-01-04] MEDS: HYDROcodone-ACET 10/325MG TAB PO ONE (22:32)
[2024-01-04] MEDS: KETOROLAC TROMETH 60MG/2ML VIAL IM ONE (22:32)
[2024-01-04 22:49] VITALS: BP 141/89; PULSE 98; RESP 18; TEMP 98.3; O2SAT 96
== END 2024-01-04 22:53 | disposition home or self-care (01) ==
LOC: EEVIPCON 22:00 → ER 22:00
DX: M79.672 Pain in left foot (principal); J45.909 Unspecified asthma, uncomplicated; M10.9 Gout, unspecified; Z85.9 Personal history of malignant neoplasm, unspecified; Z98.890 Other specified postprocedural states; Z88.0 Allergy status to penicillin; Z79.899 Other long term (current) drug therapy
CPT/HCPCS: 96372; 99283; J1885

== ENCOUNTER → 2024-05-16 | Outpatient (CLI) | payer BC ==
[~2024-05-16] MED LIST changes: +HYDR-4798 PO
[2024-05-16 10:55] LABS: Urine Bacteria None Seen /hpf (None Seen)
[2024-05-16 11:22] LABS: Urine Blood Negative /uL (Negative); Urine Clarity Clear (Clear); Urine Color Light-Yellow (Yellow); Urine Mucus FEW (None Seen); Urine Protein, UAD Negative (Negative); Urine Urobilinogen Normal (Negative); Urine WBC <1 /hpf (0 - 3)
[2024-05-16 11:35] LABS: Alanine Aminotransferase 26 U/L (7-40); Albumin 4.6 g/dL (3.2-4.8); Alkaline Phosphatase 57 U/L (46-116); Anion Gap 7 (5-15); Aspartate Aminotransferase 17 U/L (13-40); BUN/Creatinine Ratio 6.5 (10.0-20.0); Blood Urea Nitrogen 7 mg/dL (9-23); CRP High Sensitivity 0.19 mg/dL (<1.0); Calcium 10.1 mg/dL (8.7-10.4); Carbon Dioxide 27 mmol/L (20-30); Chloride 106 mmol/L (98-107); Glucose 105 mg/dL (74-106); LDL Cholesterol 130 mg/dL (< 100); Potassium 4.7 mmol/L (3.5-5.1); Sodium 140 mmol/L (136-145); Triglycerides 265 mg/dL (< 150)
[2024-05-16 11:36] LABS: Bilirubin, Total 0.6 mg/dL (0.2-1.0); Cholesterol 216 mg/dL (< 200); HDL Cholesterol 51 mg/dL (40-59); Total Protein 6.8 g/dL (5.7-8.2)
[2024-05-16 11:37] LABS: Basophils # (auto) 0 10 ^3/uL (0-0.2); Basophils % (auto) 0.2 % (0.0-2.0); Eosinophils # (auto) 0.1 10 ^3/uL (0-0.8); Hematocrit 46.3 % (41.0-53.0); Hemoglobin 16.1 g/dL (13.5-17.5); Lymphocytes # (auto) 2.6 10 ^3/uL (0.4-5.4); Lymphocytes % (auto) 34.7 % (10.0-50.0); Mean Corpuscular Hemoglobin 31.6 pg (28.0-32.0); Mean Corpuscular Hgb Conc. 34.8 g/dL (32.0-36.0); Mean Corpuscular Volume 90.7 fL (80.0-100.0); Monocytes # (auto) 0.4 10 ^3/uL (0-1.3); Neutrophils # (auto) 4.4 10 ^3/uL (1.6-8.6); Neutrophils % (auto) 59.1 % (37.0-80.0); Nucleated Red Blood Cells % 0.1 %; Platelet Count (auto) 240 10^3/uL (140-450); Red Blood Cells 5.11 10^6/uL (4.5-5.90); Red Cell Distribution Width 13.9 % (11.8-14.3); White Blood Cell 7.4 10^3/uL (4.4-10.8)
[2024-05-16 12:17] LABS: Erythrocyte Sedimentation Rate 2 mm/hr (0-20)
[2024-05-16 12:29] LABS: Uric Acid 9.1 mg/dL (3.7-9.2)
== END | disposition home or self-care (01) ==
LOC: LAB 10:38
PROVIDERS: ATTEND Student in an Organized Health Care Education/Training Program
DX: M10.09 Idiopathic gout, multiple sites (principal); E78.5 Hyperlipidemia, unspecified; E03.0 Congenital hypothyroidism with diffuse goiter; R73.9 Hyperglycemia, unspecified
CPT/HCPCS: 36415; 80053; 80061; 81001; 83036; 84443; 84550; 85025; 85652; 86141

== ENCOUNTER 2024-07-14 08:46 | Emergency (ER) | payer BC ==
[~2024-07-14] VITALS: Ht 175.3 cm; Wt 131.4 kg
--- NOTE | 2024-07-14 09:22 | ED.PDOC ---
Musculoskeletal HPI Comments A 29 YEAR OLD MALE PRESENTS TO THE ED WITH COMPLAINT OF KNEE AND TOE PAIN. PATIENT REPORTS THAT HE HAS BEEN EXPERIENCING LEFT KNEE AND RIGHT GREAT TOE PAIN SINCE LAST NIGHT, BELIEVING IT MAY BE DUE TO A GOUT FLARE UP. PATIENT RELAYS THAT HE HAS BEEN RECENTLY DIAGNOSED WITH GOUT AND HIS RECENT URIC ACID LEVEL WAS AT 9.2. PATIENT STATES HE WAS ONLY PRESCRIBED ALLOPURINOL AND COLCHICINE FOR MANAGEMENT YESTERDAY. PATIENT DENIES FEVER, CHILLS, SHORTNESS OF BREATH, CHEST PAIN, ABDOMINAL PAIN, NAUSEA, VOMITING, HEADACHE, OR OTHER COMPLAINTS. NO OTHER SYMPTOMS OR MODIFYING FACTORS AT THIS TIME. Chief Complaint: Lower Extremity Time Seen by MD: 09:15 Primary Care Provider: HELIO Reviewed Notes: Nurses Notes, Medications, Allergies Allergies: Coded Allergies: Penicillins (Verified Allergy, Intermediate, 05/13/19) Home Meds Active Scripts Hydrocodone-Acetaminophen (Hydrocodone Bitartrate/AC 10-325 mg) 1 Tab Tab, 1 TAB PO Q6HPRN PRN, #30 TAB Prov:MARGOTH DELUCA DO 01/04/24 Prednisone (Prednisone) 20 Mg Tab, 40 MG PO DAILY for 5 Days, #10 TAB 0 Refills Prov:AURA GOMEZ HEAVY EQUIPMENT OPERATOR APPRENTICE 12/27/23 Naproxen (NAPROSYN TABLET) 500 Mg Tb, 1 TAB PO BIDPC for 7 Days, #14 TAB 0 Refills Prov:AURA GOMEZ HEAVY EQUIPMENT OPERATOR APPRENTICE 12/27/23 Reported Medications Paroxetine (PAXIL TABLET) 20 Mg Tb, 40 MG PO DAILY, TAB 12/30/21 Information Source: Patient Mode of Arrival: Ambulatory Location: Left, Right Extremity Location: Great Toe (RIGHT), Knee (LEFT) Timing: Hours Prehospital treatment: None Severity: Moderate Able to Move Extremity: Yes Bear Weight: Fully Pain: Moderate Mechanism: Spontaneous Circumstances: Gout Onset of Symptoms: Spontaneous Symptoms: Pain DVT Risk Factors: NONE Last Tetanus: Unknown History of: Gout Associated signs and symptoms: Knee pain Past Medical History PAST MEDICAL HISTORY: Asthma, Cancer, Gout, PE Surgical History: Appendectomy, CABG, Denies all surgeries Family History Family History: Family hx of DM, Family hx of Cancer, Family hx of HTN Family History (Other): Strong family history of gout Social History Smoker: Non-Smoker Alcohol: Denies ETOH Use Drugs: Denies Drug Use Lives In: Home Constitutional: denies: chills, diaphoresis, fatigue, fever, malaise, sweats, weakness, others EENTM: denies: blurred vision, double vision, ear bleeding, ear discharge, ear drainage, ear pain, ear ringing, eye pain, eye redness, hearing loss, mouth pain, mouth swelling, nasal discharge, nose bleeding, nose congestion, nose pain, photophobia, tearing, throat pain, throat swelling, voice changes, others Respiratory: denies: cough, hemoptysis, orthopnea, SOB at rest, shortness of breath, SOB with excertion, stridor, wheezing, others Cardiovascular: denies: chest pain, dizzy spells, diaphoresis, Dyspnea on exertion, edema, irregular heart beat, left arm pain, lightheadedness, palpitations, PND, syncope, others Gastrointestinal: denies: abdomen distended, abdominal pain, blood streaked bowels, constipated, diarrhea, dysphagia, difficulty swallowing, hematemesis, melena, nausea, poor appetite, poor fluid intake, rectal bleeding, rectal pain, vomiting, others Genitourinary: denies: burning, dysuria, flank pain, frequency, hematuria, incontinence, penile discharge, penile sore, pain, testicle pain, testicle swelling, urgency, others Neurological: denies: dizziness, fainting, headache, left sided numbness, left sided weakness, numbness, paresthesia, pre-existing deficit, right sided numbness, right sided weakness, seizure, speech problems, tingling, tremors, weakness, others Musculoskeletal: reports: gout (LEFT KNEE AND RIGHT GREAT TOE), joint pain (LEFT KNEE AND RIGHT GREAT TOE PAIN), joint swelling; denies: back pain, muscle pain, muscle stiffness, neck pain, others Integumetry: denies: bruises, change in color, change in hair/nails, dryness, laceration, lesions, lumps, rash, wounds, others Allergic/Immunocompromised: denies: Difficulty Healing, Frequent Infections, Hives, Itching, others Hematologic/Lymphatic: denies: anemia, blood clots, easy bleeding, easy bruising, swollen glands, others Endocrine: denies: excessive hunger, excessive sweating, excessive thirst, excessive urination, flushing, intolerance to cold, intolerance to heat, unexplained weight gain, unexplained weight loss, others Psychiatric: denies: anxiety, bipolar disorder, depression, hopeless, panic disorder, schizophrenia, sleepless, suicidal, others All Other Systems: Reviewed and Negative Physical Exam General Appearance: No Apparent Distress, Normal HEENT: Normal ENT Inspection, PERRL/EOMI, Pharynx Normal Neck: Full Range of Motion, Non-Tender, Normal, Normal Inspection Respiratory: Chest Non-Tender, Lungs Clear, No Accessory Muscle Use, No Respiratory Distress, Normal Breath Sounds Cardiovascular: No Edema, No JVD, No Murmur, No Gallop, Normal Peripheral Pulses, Regular Rate/Rhythm Breast Exam: Deferred Gastrointestinal: No Organomegaly, Non Tender, No Pulsatile Mass, Normal Bowel Sounds, Soft Genitalia: Deferred Pelvic: Deferred Rectal: Deferred Extremities: No calf tenderness, Normal capillary refill, Normal range of motion, No pedal edema, Tender (AND MILD SWELLING ON LEFT KNEE AND RIGHT GREAT TOE, NO BONY TENDERNESS AND DEFORMITY. MILD REDNESS AND HEAT ON LEFT KNEE AND RIGHT GREAT TOE,+GOUT. ) Musculoskeletal : Apperance: Normal Neurologic: Alert, circulation tender II-XII nml as Tested, No Motor Deficits, Normal Affect, Normal Mood, No Sensory Deficits Cerebellar Function: Normal Reflexes: Normal Skin: Dry, Normal Color, Warm Peripheral Pulses: 2+ dorsalis pedis (R), 2+ dorsalis pedis (L) Lymphatic: No Adenopathy Was a procedure done? Was a procedure done?: No Differential Diagnosis EXT Differential Diagnosis: Fracture, Sprain, Gout, Contusion, Strain X-Ray, Labs, Meds, VS Vital Signs Date Time Temp Pulse Resp B/P (MAP) Pulse Ox O2 Delivery O2 Flow Rate FiO2 07/14/24 09:07 97.9 79 18 159/99 (119) 96 X-Ray, Labs, Meds, VS Comment TORADOL 60MG IN=M AND SOLUMEDROL 125MG IM Time of 1ST Reevaluation: 10:00 Reevaluation 1ST: Improved Patient Education/Counseling: Diagnosis, Treatment, Need For Follow Up Family Education/Counseling: Diagnosis, Treatment, Need For Follow Up, No Family Present Medical Screening: No EMC Exist At This Time Departure 1 Departure Time of Disposition: 10:00 Impression: Primary Impression: Acute gout Qualified Codes: M10.9 - Gout, unspecified Disposition: HOME / SELF CARE / HOMELESS Condition: Stable Additional Instructions: FOLLOW-UP WITH PCP IN 1 TO 2 DAYS. TAKE MEDICATIONS PRESCRIBED. RETURN TO ED FOR ANY NEW OR WORSENING SYMPTOMS. Discharged With: Self Critical Care Note Critical Care Time?: No Stability Stability form required: No Heart Score Heart Score: Heart Score Response (Comments) Value History N/A 0 EKG N/A 0 Age N/A 0 Risk Factors N/A 0 Troponin N/A 0 Total 0 I personally scribed for MUMTAZ DE LA O ([email or web address]) on 07/14/24 at 09:22. Electronically submitted by Rico Cristina ([email or web address]). MUMTAZ DE LA O Jul 14, 2024 09:22
[2024-07-14] MEDS: methylPREDNISolone SOD SUCC 125 MG/2 ML VL IM ONE (09:43)
[2024-07-14 09:44] VITALS: BP 159/99; PULSE 78; RESP 18; TEMP 97.9; O2SAT 96
[2024-07-14] MEDS: KETOROLAC TROMETH 60MG/2ML VIAL IM ONE (09:44)
== END 2024-07-14 09:53 | disposition home or self-care (01) ==
LOC: ER 08:46
DX: M10.9 Gout, unspecified (principal); J45.909 Unspecified asthma, uncomplicated; Z88.0 Allergy status to penicillin; Z79.899 Other long term (current) drug therapy; Z90.49 Acquired absence of other specified parts of digestive tract; Z90.89 Acquired absence of other organs
CPT/HCPCS: 96372; 99284; J1885; J2919

== ENCOUNTER → 2024-08-05 | Outpatient (CLI) | payer BC ==
[2024-08-05 14:59] LABS: Basophils # (auto) 0 10 ^3/uL (0-0.2); Basophils % (auto) 0.4 % (0.0-2.0); Eosinophils # (auto) 0.1 10 ^3/uL (0-0.8); Eosinophils % (auto) 1.5 % (0.0-7.0); Hematocrit 45.6 % (41.0-53.0); Hemoglobin 15.4 g/dL (13.5-17.5); Lymphocytes # (auto) 3.8 10 ^3/uL (0.4-5.4); Lymphocytes % (auto) 41.9 % (10.0-50.0); Mean Corpuscular Hemoglobin 30.6 pg (28.0-32.0); Mean Corpuscular Hgb Conc. 33.8 g/dL (32.0-36.0); Mean Corpuscular Volume 90.6 fL (80.0-100.0); Monocytes # (auto) 0.5 10 ^3/uL (0-1.3); Monocytes % (auto) 5.4 % (0.0-12.0); Neutrophils # (auto) 4.6 10 ^3/uL (1.6-8.6); Neutrophils % (auto) 50.8 % (37.0-80.0); Nucleated Red Blood Cells % 0.1 %; Platelet Count (auto) 229 10^3/uL (140-450); Red Blood Cells 5.04 10^6/uL (4.5-5.90); Red Cell Distribution Width 13.9 % (11.8-14.3)
[2024-08-05 15:47] LABS: Alanine Aminotransferase 28 U/L (7-40); Albumin 4.8 g/dL (3.2-4.8); Alkaline Phosphatase 55 U/L (46-116); Anion Gap 9 (5-15); Aspartate Aminotransferase 17 U/L (13-40); BUN/Creatinine Ratio 8.5 (10.0-20.0); Blood Urea Nitrogen 9 mg/dL (9-23); Calcium 10.3 mg/dL (8.7-10.4); Carbon Dioxide 26 mmol/L (20-31); Chloride 104 mmol/L (98-107); Glucose 94 mg/dL (74-106); Potassium 3.9 mmol/L (3.5-5.1); Sodium 139 mmol/L (136-145)
[2024-08-05 15:48] LABS: Bilirubin, Total 0.6 mg/dL (0.2-1.0); Total Protein 7.1 g/dL (5.7-8.2)
[2024-08-05 16:15] LABS: Uric Acid 7.9 mg/dL (3.7-9.2)
== END | disposition home or self-care (01) ==
LOC: LAB 14:40
PROVIDERS: ATTEND Internal Medicine Rheumatology
DX: M10.9 Gout, unspecified (principal)
CPT/HCPCS: 36415; 80053; 84550; 85025

== ENCOUNTER 2024-09-28 09:38 | Inpatient (IN) | payer BC, OTHER ==
[2024-09-28] VITALS (8 sets, daily range): BP systolic 126–132; BP diastolic 80–87; PULSE 79–86; RESP 16–19; TEMP 97.5–98.5; O2SAT 95–100
[~2024-09-28] VITALS: Ht 175.3 cm; Wt 130.3 kg
--- NOTE | 2024-09-28 10:33 | DVH ---
CHEST RADIOGRAPH Indication: cough Technique: Single frontal view of the chest was obtained COMPARISON: None FINDINGS: Lines and Tubes: Median sternotomy Lungs: Clear Pleura: No effusion. No pneumothorax. Cardiomediastinal contours: Unremarkable Bones: Unremarkable IMPRESSION: No acute disease.
--- NOTE | 2024-09-28 10:35 | ED.PDOC ---
History of Present Illness HPI Comments 29-year-old male came to the ER complaining of nausea vomiting diarrhea for the past few days. States that he has been having cough since last night. Having on and off fevers. Does have a history of pulmonary embolus. Denies any other symptoms. Chief Complaint: Flu like Time Seen by MD: 09:52 Reviewed Notes: Nurses Notes, Medications, Allergies Allergies: Coded Allergies: Penicillins (Verified Allergy, Unknown, 09/28/24) Information Source: Patient Mode of Arrival: Ambulatory Severity: Moderate Timing: Days Past Medical History PAST MEDICAL HISTORY: Denies Surgical History: Denies all surgeries Social History Smoker: Non-Smoker Alcohol: Denies ETOH Use Drugs: Denies Drug Use Constitutional: denies: chills, diaphoresis, fatigue, fever, malaise, sweats, weakness, others EENTM: denies: blurred vision, double vision, ear bleeding, ear discharge, ear drainage, ear pain, ear ringing, eye pain, eye redness, hearing loss, mouth pain, mouth swelling, nasal discharge, nose bleeding, nose congestion, nose pain, photophobia, tearing, throat pain, throat swelling, voice changes, others Respiratory: reports: cough; denies: hemoptysis, orthopnea, SOB at rest, shortn ess of breath, SOB with excertion, stridor, wheezing, others Cardiovascular: denies: chest pain, dizzy spells, diaphoresis, Dyspnea on exertion, edema, irregular heart beat, left arm pain, lightheadedness, palpitations, PND, syncope, others Gastrointestinal: reports: diarrhea, nausea, vomiting; denies: abdomen distended, abdominal pain, blood streaked bowels, constipated, dysphagia, difficulty swallowing, hematemesis, melena, poor appetite, poor fluid intake, rectal bleeding, rectal pain, others Genitourinary: denies: burning, dysuria, flank pain, frequency, hematuria, incontinence, penile discharge, penile sore, pain, testicle pain, testicle swelling, urgency, others Neurological: denies: dizziness, fainting, headache, left sided numbness, left sided weakness, numbness, paresthesia, pre-existing deficit, right sided numbness, right sided weakness, seizure, speech problems, tingling, tremors, weakness, others Musculoskeletal: denies: back pain, gout, joint pain, joint swelling, muscle pain, muscle stiffness, neck pain, others Integumetry: denies: bruises, change in color, change in hair/nails, dryness, laceration, lesions, lumps, rash, wounds, others Allergic/Immunocompromised: denies: Difficulty Healing, Frequent Infections, Hives, Itching, others Hematologic/Lymphatic: denies: anemia, blood clots, easy bleeding, easy bruising, swollen glands, others Endocrine: denies: excessive hunger, excessive sweating, excessive thirst, excessive urination, flushing, intolerance to cold, intolerance to heat, unexplained weight gain, unexplained weight loss, others Psychiatric: denies: anxiety, bipolar disorder, depression, hopeless, panic disorder, schizophrenia, sleepless, suicidal, others Physical Exam General Appearance: Moderate Distress HEENT: Normal ENT Inspection, Pharynx Normal, TMs Normal Neck: Full Range of Motion, Non-Tender, Normal, Normal Inspection Respiratory: Chest Non-Tender, Lungs Clear, No Accessory Muscle Use, No Respiratory Distress, Normal Breath Sounds Cardiovascular: No Edema, No JVD, No Murmur, No Gallop, Normal Peripheral Pulses, Regular Rate/Rhythm Breast Exam: Deferred Gastrointestinal: No Organomegaly, Non Tender, No Pulsatile Mass, Normal Bowel Sounds, Soft Genitalia: Deferred Pelvic: Deferred Rectal: Deferred Extremities: No calf tenderness, Normal capillary refill, Normal inspection, Normal range of motion, Non-tender, No pedal edema Musculoskeletal : Apperance: Normal Neurologic: Alert, crossword puzzle maker II-XII nml as Tested, No Motor Deficits, Normal Affect, Normal Mood, No Sensory Deficits Cerebellar Function: Normal Reflexes: Normal Skin: Dry, Normal Color, Warm Peripheral Pulses: 3+ Radial (R), 3+ Radial (L) Lymphatic: No Adenopathy Was a procedure done? Was a procedure done?: No Differential Dx Considerations may include: Upper respiratory tract infection Bronchitis X-Ray, Labs, Meds, VS Vital Signs Date Time Temp Pulse Resp B/P (MAP) Pulse Ox O2 Delivery O2 Flow Rate FiO2 09/28/24 11:42 86 18 98 Room Air 09/28/24 11:42 97.5 86 18 132/80 (97) 98 97.5 09/28/24 09:51 97.5 86 18 132/80 (97) 98 Lab Test 1/29/25 10:34 Range/Units D-Dimer, Quantitative 0.57 H 0.0-0.49 mg/L FEU Patient alert. Complaining of nausea vomiting cough. Vitals stable. Answering all questions. Explained to the patient. Will not need labs to do the CT angiogram. Establish intravenous access. Was given fluids. Was told to follow up with his primary care physician. Was told to come back if there is any problem. Time of 1ST Reevaluation: 10:34 Reevaluation 1ST: Unchanged Patient Education/Counseling: Diagnosis, Treatment, Prognosis, Need For Follow Up Family Education/Counseling: No Family Present Departure 1 Departure Time of Disposition: 10:35 Impression: Primary Impression: Upper respiratory tract infection Qualified Codes: J06.9 - Acute upper respiratory infection, unspecified Disposition: HOME / SELF CARE / HOMELESS Condition: Good Discharged With: Self Critical Care Note Critical Care Time?: No Stability Stability form required: No Heart Score Heart Score: Heart Score Response (Comments) Value History N/A 0 EKG N/A 0 Age N/A 0 Risk Factors N/A 0 Troponin N/A 0 Total 0 JACE BARNES MD Sep 28, 2024 10:35
[2024-09-28] MEDS: SODIUM CHLORIDE 0.9% 1,000 ML IV ONE (12:08)
[2024-09-28] MEDS: IOHEXOL 350 MG/ML 100ML IJ ONE ×2 (12:14→12:27)
[2024-09-28] MEDS ORDERED: ONDANSETRON HCL 4 MG/2 ML VIAL IV PRN (13:30)
[2024-09-28] MEDS ORDERED: HYDROcodone-ACET 5/325MG TAB PO PRN (13:30)
[2024-09-28] MEDS ORDERED: ACETAMINOPHEN 325 MG TAB PO PRN (13:30)
[2024-09-28] MEDS ORDERED: IPRATROPIUM BROM 0.5 MG/2.5ML INH SOL NEB PRN (13:30)
[2024-09-28] MEDS ORDERED: ENOXAPARIN SOD 100 MG/1 ML SYRINGE SC ONE (13:30)
[2024-09-28] MEDS ORDERED: ALBUTEROL SULF 2.5 MG/0.5ML(0.5%) NEB SOLN NEB PRN (13:30)
--- NOTE | 2024-09-28 13:37 | DVHHP2 ---
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 Patient also reports that son at home is sick with a cold. Patient denies any chest pain, lightheadedness, weakness, dizziness, chest pain, abdominal pain, fever, and chills. Patient also reports a nonproductive dry cough. Patient does report that he uses marijuana. Pulmonary: Pulmonary embolus Rheumatologic: Gout Past Medical History Left testicular cyst Teratoma in 2011 Past Surgical History: Appendectomy, Other (Left testicular cysts removed 2 years ago, teratoma removed in 2011, and sesamoids removed right foot) Family History: None Smoke: No ALCOHOL: none Drugs: Marijuana Lives: with Family Domestic Violence: Neg Review of Systems Constitutional: Yes: Other (Fatigue); No: Fever, Chills, Sweats, Weakness, Malaise Eyes: No: Pain, Vision change, Conjunctivae inflammation, Eyelid inflammation, Other, Redness ENT: No: Ear pain, Ear discharge, Nose pain, Nose discharge, Nose congestion, Mouth pain, Mouth swelling, Throat pain, Throat swelling, Other Respiratory: Cough, SOB with excertion; No: Dry, Shortness of breath, Wheezing, Hemoptysis, Pleuritic Pain, Sputum, Wheezing, Other Cardiovascular: No: Chest Pain, Palpitations, Orthopnea, Paroxysmal Noc. Dyspnea, Edema, Lt Headedness, Other Gastrointestinal: Nausea, Vomiting, Diarrhea; No: Abdominal Pain, Constipation, Melena, Hematochezia, Other Genitourinary: No Dysuria, No Frequency, No Incontinence, No Hematuria, No Retention, No Other Musculoskeletal: No: other, neck pain, shoulder pain, arm pain, back pain, hand pain, leg pain, foot pain Skin: No: Rash, Lesions, Jaundice, Bruising, Other Neurological: No: Weakness, Numbness, Incoordination, Change in speech, Confusion, Seizures, Other Allergies: Coded Allergies: Penicillins (Verified Allergy, Intermediate, 05/13/19) Exam Vital Signs Vital Signs Date Time Temp Pulse Resp B/P (MAP) Pulse Ox O2 Delivery O2 Flow Rate FiO2 09/28/24 11:42 86 18 98 Room Air 09/28/24 11:42 97.5 132/80 (97) 97.5 General Appearance: Alert, Oriented X3, Cooperative, No acute distress HEENT: Atraumatic, PERRLA, EOMI, Mucous membr. moist/pink Respiratory: Normal air movement Cardiovascular: Regular rate, Normal S1, Normal S2, No murmurs Abdominal: Soft Extremities: No clubbing, No cyanosis, No edema, Normal pulses, No tenderness/swelling Skin: No rashes, No breakdown, No significant lesion Neuro: Normal gait, Normal speech, Strength at 5/5 X4 ext, Normal tone, Sensation intact Psych/Mental Status: Mental status NL, Mood NL Labs/Xrays Labs Test 09/28/24 10:34 Range/Units D-Dimer, Quantitative 0.57 H 0.0-0.49 mg/L FEU CHEST RADIOGRAPH Indication: cough Technique: Single frontal view of the chest was obtained COMPARISON: None FINDINGS: Lines and Tubes: Median sternotomy Lungs: Clear Pleura: No effusion. No pneumothorax. Cardiomediastinal contours: Unremarkable Bones: Unremarkable IMPRESSION: No acute disease. Assessment/Plan Assessment/Plan Assessment/Plan: Intractable nausea, vomiting, and diarrhea Dyspnea with exertion Rule out PE History of PE in [address] chest NS 1 L given in ED Flu panel Chest x-ray noted D-dimer elevated A.m. labs Lovenox Echo IV antibiotics-ceftriaxone Respiratory treatments EKG Antiemetics Pain management uds tsh lipid Chronic gout Continue home medications FEN/PPX Diet Hep-Lock DVT prophylaxis -Lovenox therapeutic PUD prophylaxis Protonix Admit to med surg Continue home medications Discussed plan of care with patient, patient's spouse, and nurse Plan discussed with: Patient My Orders Orders - GRECIA KHOURY MAINTENANCE MECHANIC Procedure Category Date Status Time Enoxaparin Sodium PHA 09/28/24 Verified (Lovenox) 22:00 Enoxaparin Sodium PHA 09/28/24 Verified (Lovenox) 13:30 Echo 2d Mode Cardiac US 09/28/24 Verified DOP 13:30 Ceftriaxone Ivpb PHA 09/29/24 Verified Rocephin 09:00 Ceftriaxone Ivpb PHA 09/28/24 Verified Rocephin 13:30 Albuterol Medneb PHA 09/28/24 Verified (Ventolin Medneb) 18:00 Albuterol Medneb PHA 09/28/24 Verified (Ventolin Medneb) 13:30 Ipratropium Medneb PHA 09/28/24 Verified (Atrovent Medneb) 18:00 Ipratropium Medneb PHA 09/28/24 Verified (Atrovent Medneb) 13:30 Electrocardigram EKG 09/28/24 Verified 13:30 Admit ADMIT 09/28/24 Verified 13:30 Allergies PANFILO 09/28/24 Verified 13:30 Code Status CODE 09/28/24 Verified 13:30 Hydrocodone-Acet PHA 09/28/24 Verified 5/325mg Tab ([place] 13:30 Ondansetron Hcl PHA 09/28/24 Verified (Zofran) 13:30 Complete Blood Count LAB 09/29/24 Verified 04:00 Comprehensive LAB 09/29/24 Verified Metabolic Panel 04:00 Cardiac DIET 09/28/24 Verified Diet-2gna,Lofat,Lochol Lunch Acetaminophen Tablet PHA 09/28/24 Verified (Tylenol Tablet) 13:30 Date of Service: Sep 28, 2024 Billing Provider: GRECIA KHOURY Common Visit Codes: [id number] INP/OBS CARE (HIGH) GRECIA KHOURY Sep 28, 2024 13:37
[2024-09-28] MEDS: ENOXAPARIN SOD 150 MG/1 ML SYRINGE SC ONE (15:20)
[2024-09-28] MEDS: cefTRIAXone 1GM/50ML D5W 50 ML IV ONE (15:29)
[2024-09-28 18:09] LABS: Cholesterol 185 mg/dL (< 200); HDL Cholesterol 56 mg/dL (40-59)
[2024-09-28 18:11] LABS: LDL Cholesterol 106 mg/dL (< 100); Triglycerides 229 mg/dL (< 150)
[2024-09-28] MEDS: ALBUTEROL SULF 2.5 MG/0.5ML(0.5%) NEB SOLN NEB SCH (19:11)
[2024-09-28] MEDS: IPRATROPIUM BROM 0.5 MG/2.5ML INH SOL NEB SCH (19:12)
[2024-09-28] MEDS: ENOXAPARIN SOD 150 MG/1 ML SYRINGE SC SCH (21:51)
[2024-09-28 22:56] LABS: Rapid Influenza A Negative (Negative); Rapid Influenza B Negative (Negative)
[2024-09-29] VITALS (9 sets, daily range): BP systolic 114–129; BP diastolic 61–91; PULSE 70–92; RESP 16–19; TEMP 97.8–98.8; O2SAT 94–100
[2024-09-29 05:56] LABS: Amphetamine Screen, Urine Neg (NEGATIVE); Barbiturate Scree,Urine Neg (NEGATIVE); Benzodiazephine Screen, Urine Neg (NEGATIVE); Cannabinoid Screen, Urine Pos (NEGATIVE); Cocaine Screen, Urine Neg (NEGATIVE); Opiate Scree,Urine Neg (NEGATIVE); Phencyclidine Screen, Urine Neg (NEGATIVE)
[2024-09-29 07:09] LABS: Basophils # (auto) 0 10 ^3/uL (0-0.2); Basophils % (auto) 0.2 % (0.0-2.0); Eosinophils # (auto) 0.2 10 ^3/uL (0-0.8); Eosinophils % (auto) 2.7 % (0.0-7.0); Hematocrit 42.3 % (41.0-53.0); Hemoglobin 14.6 g/dL (13.5-17.5); Lymphocytes # (auto) 2.5 10 ^3/uL (0.4-5.4); Lymphocytes % (auto) 35.9 % (10.0-50.0); Mean Corpuscular Hemoglobin 31.1 pg (28.0-32.0); Mean Corpuscular Hgb Conc. 34.4 g/dL (32.0-36.0); Mean Corpuscular Volume 90.4 fL (80.0-100.0); Monocytes # (auto) 0.6 10 ^3/uL (0-1.3); Monocytes % (auto) 8.8 % (0.0-12.0); Neutrophils # (auto) 3.7 10 ^3/uL (1.6-8.6); Neutrophils % (auto) 52.4 % (37.0-80.0); Platelet Count (auto) 201 10^3/uL (140-450); Red Blood Cells 4.68 10^6/uL (4.5-5.90); Red Cell Distribution Width 13.5 % (11.8-14.3)
[2024-09-29 07:25] LABS: Alanine Aminotransferase 15 U/L (7-40); Albumin 4.3 g/dL (3.2-4.8); Alkaline Phosphatase 53 U/L (46-116); Anion Gap 9 (5-15); Aspartate Aminotransferase 15 U/L (13-40); Bilirubin, Total 0.4 mg/dL (0.2-1.0); Calcium 9.2 mg/dL (8.7-10.4); Carbon Dioxide 25 mmol/L (20-31); Chloride 107 mmol/L (98-107); Glucose 103 mg/dL (74-106); Sodium 141 mmol/L (136-145); Total Protein 6.2 g/dL (5.7-8.2)
[2024-09-29 07:37] LABS: Blood Urea Nitrogen 7 mg/dL (9-23); Potassium 3.2 mmol/L (3.5-5.1)
--- NOTE | 2024-09-29 08:03 | ECG ---
[facility] Test Date: 2024-09-28 Test Time: 18:23:50 Pat Name: LEA CAMPOS Department: Room: 0236 A Gender: M Neurology Hospitalist: bob2 : 1995 Requested By: GRECIA KHOURY Order Number: [id number] Reading MD: Madhuri Carmona Measurements Intervals [place] Rate: 73 P: 63 ID: [id number] QRS: 30 QRSD: 120 T: 49 QT: 380 QTc: 419 Interpretive Statements Sinus rhythm Probable left atrial enlargement Nonspecific intraventricular conduction delay Electronically Signed On 09-29-2024 8:52:10 PST by Madhuri Carmona Please click the below link to view image of tracing.
[2024-09-29] MEDS: PANTOPRAZOLE 40 MG/10 ML VIAL INJ IV SCH (09:13)
[2024-09-29] MEDS: cefTRIAXone 1GM/50ML D5W 50 ML IV SCH (09:13)
--- NOTE | 2024-09-29 11:21 | DVH ---
Procedure: CT CT ANGIO CHEST CONTRAST Reason for study/Clinical History: pe, sob Comparison Study: None available at time of dictation. Exam Date: 09/28/2024 12:31 PM Radiation Dose Information: CT Dose: CTDI volume is 29.6 mGy. Dose-length product is 921.65 mGy*cm TECHNIQUE: After the uneventful administration of intravenous contrast intravenously, CT imaging was performed through the chest. Coronal and sagittal reformations were performed by the technologist. FINDINGS: Lower Neck: Visualized portions of the thyroid gland are unremarkable. Aorta and Vasculature: Normal caliber of thoracic aorta. Lymph Nodes: No enlarged intrathoracic lymph nodes. Mediastinum: Heart size is normal. There is no pericardial effusion. The esophagus is unremarkable. Lungs: No focal consolidation, pleural effusion or significant pneumothorax. No suspicious pulmonary nodule or mass. Musculoskeletal: No acute osseous abnormality. Upper abdomen: Limited portions of the upper abdomen are unremarkable. IMPRESSION: No evidence of acute intrathoracic abnormality identified. All CT scans at this medical facility are performed using dose modulation techniques as appropriate to a performed exam including the following: Automated exposure control was utilized; adjustment of the MA and/or KV according to patient size; and use of iterative reconstruction technique. NA ERNST
[2024-09-29 12:59] LABS: COVID19 ANTIGEN SOFIA FIA NEGATIVE (NEGATIVE)
--- NOTE | 2024-09-29 13:31 | DVHSR ---
APPROVED REPORT EXAM: Two-dimensional and M-mode echocardiogram with Doppler and color Doppler. Blood Pressure: 129/91 mmHg INDICATION SOB RISK FACTORS Obesity: Height: 5'9, Weight: 287 DIMENSIONS LVDd4.8 (3.8-5.7cm)LA (2D)3.8 (1.9-4.0cm)Aortic Root3.7 (2.0-3.7cm) LVDs3.5 (2.5-4.0cm)LA (MM) (1.9-4.0cm)Aortic Cusp Exc2.6 (1.5-2.0cm) EF (%) 55.0 (55-70%)Rt. Atrium3.4 (1.9-4.0cm)Asc. Aorta cm IVSd1.0 (0.7-1.1cm)RV (D) (1.8-2.4cm) PWd1.1 (0.7-1.1cm) Mitral Valve MitralMitral Stenosis E wave0.85m/sMV Mean GR.mmHg A wave0.51m/sMV Peak GR.40mmHg E/A ratio1.72D MVAcm2 DECEL [id number] 1/2 Timems Aortic Valve Aortic ValveAortic Stenosis V10.72m/Sussy Mean GR.2mmHg V20.92m/Sussy Peak GR.3mmHg LVOT Diameter2.6 (1.8-2.4cm)Doppler AVA4.15cm2 Pulmonic Valve V20.91m/s Tricuspid Valve TR Velocity1.93m/s LEFT VENTRICLE The left ventricle is of normal size. Wall thickness is normal. Ejection fraction is normal and is estimated at 55-60%. There is no regional wall motion abnormalities. Diastolic function is preserve d. E to E prime ratio is in normal range. RIGHT VENTRICLE The right ventricle is of normal size. Systolic function is normal. ATRIA Both atria are of normal size. Interatrial septum appears to be intact. MITRAL VALVE Normal structure and function. No significant regurgitation. PULMONIC VALVE Likely normal. TRICUSPID VALVE Normal structure and function. There is trace regurgitation. PA systolic pressure isn't adequately estimated. AORTIC VALVE Normal in structure and function. GREAT VESSELS The aortic root is of normal size. The proximal ascending aorta is not well visualized. PERICARDIAL EFFUSION There is no significant pericardial effusion. IVC is of normal size and collapses normally with insp iration. Conclusion Normal left ventricular size and systolic function. Ejection fraction is estimated at 55-60%. Normal right ventricular size and systolic function. No hemodynamically significant valve disease. PA systolic pressure isn't adequately estimated.
--- NOTE | 2024-09-29 13:49 | DVHDS2 ---
Discharge Summary Date of Admission Sep 28, 2024 at 13:30 Date of Discharge: Sep 29, 2024 Admitting Diagnosis Intractable nausea and vomiting Labs/Diagnostic Data: Laboratory Results Test 09/29/24 12:08 09/29/24 06:33 09/29/24 05:05 09/28/24 22:14 SARS-CoV-2 Antigen (Rapid) Negative (NEGATIVE) White Blood Count 7.0 10^3/uL (4.4-10.8) Red Blood Count 4.68 10^6/uL (4.5-5.90) Hemoglobin 14.6 g/dL (13.5-17.5) Hematocrit 42.3 % (41.0-53.0) Mean Corpuscular Volume 90.4 fL (80.0-100.0) Mean Corpuscular Hemoglobin 31.1 pg (28.0-32.0) Mean Corpuscular Hemoglobin Concent 34.4 g/dL (32.0-36.0) Red Cell Distribution Width 13.5 % (11.8-14.3) Platelet Count 201 10^3/uL (140-450) Mean Platelet Volume 8.9 fL (6.9-10.8) Neutrophils (%) (Auto) 52.4 % (37.0-80.0) Lymphocytes (%) (Auto) 35.9 % (10.0-50.0) Monocytes (%) (Auto) 8.8 % (0.0-12.0) Eosinophils (%) (Auto) 2.7 % (0.0-7.0) Basophils (%) (Auto) 0.2 % (0.0-2.0) Neutrophils # (Auto) 3.7 10 ^3/uL (1.6-8.6) Lymphocytes # (Auto) 2.5 10 ^3/uL (0.4-5.4) Monocytes # (Auto) 0.6 10 ^3/uL (0-1.3) Eosinophils # (Auto) 0.2 10 ^3/uL (0-0.8) Basophils # (Auto) 0 10 ^3/uL (0-0.2) Nucleated Red Blood Cells 0.0 % Sodium Level 141 mmol/L (136-145) Potassium Level 3.2 mmol/L (3.5-5.1) Chloride Level 107 mmol/L (98-107) Carbon Dioxide Level 25 mmol/L (20-31) Anion Gap 9 (5-15) Blood Urea Nitrogen 7 mg/dL (9-23) Creatinine 0.88 mg/dL (0.700-1.30) Glomerular Filtration Rate Calc 119 mL/min (>90) BUN/Creatinine Ratio 8.0 (10.0-20.0) Serum Glucose 103 mg/dL (74-106) Calcium Level 9.2 mg/dL (8.7-10.4) Total Bilirubin 0.4 mg/dL (0.2-1.0) Aspartate Amino Transferase (AST) 15 U/L (13-40) Alanine Aminotransferase (ALT) 15 U/L (7-40) Alkaline Phosphatase 53 U/L (46-116) Total Protein 6.2 g/dL (5.7-8.2) Albumin 4.3 g/dL (3.2-4.8) Urine Opiates Screen Neg (NEGATIVE) Urine Fentanyl Screen Neg (NEGATIVE) Urine Barbiturates Screen Neg (NEGATIVE) Urine Phencyclidine Screen Neg (NEGATIVE) Urine Amphetamines Screen Neg (NEGATIVE) Urine Benzodiazepines Screen Neg (NEGATIVE) Urine Cocaine Screen Neg (NEGATIVE) Urine Cannabinoids Screen Pos (NEGATIVE) Influenza Type A Antigen Negative (Negative) Influenza Type B Antigen Negative (Negative) Test 09/28/24 10:34 D-Dimer, Quantitative 0.57 mg/L FEU (0.0-0.49) Triglycerides Level 229 mg/dL (< 150) Cholesterol Level 185 mg/dL (< 200) LDL Cholesterol 106 mg/dL (< 100) HDL Cholesterol 56 mg/dL (40-59) Thyroid Stimulating Hormone (TSH) 4.15 uIU/mL (0.55-4.78) Other Laboratory Tests 09/29/24 06:33 Brief Hx & Hospital Course: History of Present Illness Williams Zuleta is a 29-year-old male with past medical history of PE, gout, left cyst removal on testicle 2 years ago, 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 Patient also reports that son at home is sick with a cold. Patient denies any chest pain, lightheadedness, weakness, dizziness, chest pain, abdominal pain, fever, and chills. Patient also reports a nonproductive dry cough. Patient does report that he uses marijuana. Course of hospitalization: CT angiogram of the chest negative for PE. Patient was negative for influenza a/B. Echocardiogram is unremarkable. Patient states that all of his symptoms have improved and no longer has diarrhea as well as being able to tolerate oral intake. Patient was will be discharged home with no prescription. Given that he smokes marijuana daily basis, he was given education on cannabinoid induced hyperemesis. Physical examination General: Alert and Oriented x3. No acute distress. Obese Eyes: EOMI. Anicteric. HENT: Moist mucous membranes. Lungs: Clear to auscultation bilaterally. No accessory muscle use. Cardiovascular: Regular rate and rhythm. No murmur. No JVD. Abdomen: Soft, non-tender and non-distended. No palpable masses. Extremities: No edema. Non-tender. Skin: No rashes or lesions. Warm. Neurologic: No focal neurological deficits. CN II-XII grossly intact, but not individually tested. Psychiatric: Cooperative. Appropriate mood and affect. Total time spent with patient discussing and formulating plan of care: 35 minutes. Smoking cessation education: 10 minute This medical document was created using an electronic medical record system with [employer] dictation system. Although this document has been carefully reviewed, there may still be some phonetic and typographical errors. These areas are purely typographical due to imperfections of the software programs, and do not reflect any compromise in the patient's medical care. Condition at Discharge: Fair Final Diagnosis/Problems List Intractable N/V Secondary Diagnosis: Obesity Pulmonary embolism ruled out Probable cannabinoid induced hyperemesis Hypokalemia Discharge Disposition: Home Discharge Instruct/Medications Diet: Cardiac 2g Na,low cholest Activity: No Restrictions, As Tolerated Follow Up/Referral: PCP in 2-3 weeks 36 Discharge Statement: "Patient was advised to return to the ER or call 911 if any headaches, dizziness, shortness of breath, chest pain, abdominal pain, bleeding, fevers, or worsening of medical condition. Patient was counseled about treatment plan, medications, possible side effects, patientverbalized understanding. All questions were answered to the best of my ability. This discharge took greater then 30 minutes in planning, reviewing documentation, counseling the patient, and discussing with other team members." ASSESSMENT ASSESSMENT Assessment Intractable N/V Date of Service: Sep 29, 2024 Billing Provider: RUBY PAYTON NP Common Visit Codes: 45775-EGG/OBS DISCH DAY >30min Secondary Visit Codes: 67219-LTAVZ CHNG SMOKING >10MIN RUBY PAYTON NP Sep 29, 2024 13:49
[2024-09-29] MEDS: POTASSIUM CHL 20 Meq TABLET PO ONE (14:27)
== END 2024-09-29 15:00 | disposition home or self-care (01) | DRG 153 ==
LOC: ER 09:38 → EDUNIT# 09:38 → EEVIPCON 09:38 → OVERFLOW 13:30 → EAST 13:35
PROVIDERS: ATTEND Nurse Practitioner Acute Care
DX: J06.9 Acute upper respiratory infection, unspecified (principal); Z68.41 Body mass index [BMI] 40.0-44.9, adult; R11.2 Nausea with vomiting, unspecified; Z20.822 Contact with and (suspected) exposure to COVID-19; M10.9 Gout, unspecified; F12.90 Cannabis use, unspecified, uncomplicated; E66.9 Obesity, unspecified; E87.6 Hypokalemia; Z88.0 Allergy status to penicillin; Z86.711 Personal history of pulmonary embolism; Z90.49 Acquired absence of other specified parts of digestive tract
CPT/HCPCS: 36415; 71045; 71275; 80053; 80061; 80307; 84443; 85025; 85379; 87426; 87804; 93005; 93306; 94640; 96365; 96372; G0378; J2470

== ENCOUNTER 2024-12-13 07:35 | Emergency (ER) | payer BC ==
[~2024-12-13] VITALS: Ht 175.3 cm; Wt 126.4 kg
[2024-12-13 08:05] VITALS: BP 122/83; TEMP 98
[2024-12-13 08:06] VITALS: PULSE 88; RESP 16; O2SAT 97
--- NOTE | 2024-12-13 08:37 | DVH ---
EXAM: XY R ANKLE 3 VIEW HISTORY: right ankle pain COMPARISON: XY L ANKLE 3 VIEW on DOS: 12/27/23 TECHNIQUE: Three views of the right ankle were performed. FINDINGS: No acute fracture or dislocation are identified about the right ankle. Slight widening of t he distal tibial fibular interval. Mild lateral malleolar soft tissue swelling. Trace Achilles inser tional enthesophyte current trace tibiotalar joint effusion. IMPRESSION: 1. Flexor and slight widening of the distal tibiofibular interval and correlate for high ankle sprain .Mild lateral 2. Malleolar soft tissue swelling. HS:Y
[2024-12-13] MEDS ORDERED: IBUP-1455 PO (08:55)
--- NOTE | 2024-12-13 08:55 | ED.PDOC ---
Musculoskeletal HPI Comments This is a pleasant 29-year-old male who presents for a possible fracture to the right foot. Onset occurred three days ago after jumping out of bed. Pain is located near the Achilles tendon insertion on the calcaneal region and patient currently complains of pain with dorsiflexion plantar flexion. Able to ambulate with the pain. Aggravating factors: Standing and prolonged ambulation. Alleviating factors rest. Able to get adequate relief with the ibuprofen. Denies fevers chills nausea vomiting diarrhea. Denies any redness swelling warmth at the affected side. Chief Complaint: Lower Extremity Time Seen by MD: 07:44 Primary Care Provider: Alonzo Reviewed Notes: Nurses Notes, Medications, Allergies Allergies: Coded Allergies: Penicillins (Verified Allergy, Intermediate, 05/13/19) Home Meds Active Scripts Hydrocodone-Acetaminophen (Hydrocodone Bitartrate/AC 10-325 mg) 1 Tab Tab, 1 TAB PO Q6HPRN PRN, #30 TAB Prov:MARGOTH DELUCA DO 01/04/24 Prednisone (Prednisone) 20 Mg Tab, 40 MG PO DAILY for 5 Days, #10 TAB 0 Refills Prov:AURA GOMEZ GUM PULLER 12/27/23 Naproxen (NAPROSYN TABLET) 500 Mg Tb, 1 TAB PO BIDPC for 7 Days, #14 TAB 0 Refills Prov:AURA GOMEZ GUM PULLER 12/27/23 Reported Medications Paroxetine (PAXIL TABLET) 20 Mg Tb, 40 MG PO DAILY, TAB 12/30/21 Information Source: Patient Mode of Arrival: Ambulatory Past Medical History PAST MEDICAL HISTORY: Denies Surgical History: Denies all surgeries Family History Family History: Family hx of DM, Family hx of Cancer, Family hx of HTN Family History (Other): Strong family history of gout Social History Smoker: Non-Smoker Alcohol: Denies ETOH Use Drugs: Denies Drug Use Lives In: Home All Other Systems: Reviewed and Negative (per hpi) Physical Exam General Appearance: No Apparent Distress, Normal HEENT: Normal ENT Inspection, Pharynx Normal, TMs Normal Neck: Full Range of Motion, Non-Tender, Normal, Normal Inspection Respiratory: Chest Non-Tender, Lungs Clear, No Accessory Muscle Use, No Respiratory Distress, Normal Breath Sounds Cardiovascular: No Edema, No JVD, No Murmur, No Gallop, Normal Peripheral Pulses, Regular Rate/Rhythm Breast Exam: Deferred Gastrointestinal: No Organomegaly, Non Tender, No Pulsatile Mass, Normal Bowel Sounds, Soft Genitalia: Deferred Pelvic: Deferred Rectal: Deferred Extremities: No calf tenderness, Normal capillary refill, Normal inspection, Normal range of motion, Non-tender, No pedal edema Musculoskeletal : Apperance: Normal Neurologic: Alert, supervisor hand silvering II-XII nml as Tested, No Motor Deficits, Normal Affect, Normal Mood, No Sensory Deficits Cerebellar Function: Normal Reflexes: Normal Skin: Dry, Normal Color, Warm Lymphatic: No Adenopathy Was a procedure done? Was a procedure done?: No Images 1 - Localized tenderness to palpation. Pain with dorsiflexion plantar flexion. Brown's test positive Differential Diagnosis EXT Differential Diagnosis: Fracture, Sprain X-Ray, Labs, Meds, VS Vital Signs Date Time Temp Pulse Resp B/P (MAP) Pulse Ox O2 Delivery O2 Flow Rate FiO2 12/13/24 08:06 88 16 97 Room Air 12/13/24 08:05 98.0 88 16 122/83 (96) 97 98.0 12/13/24 07:51 98.0 88 16 122/83 (96) 97 98.0 X-Ray, Labs, Meds, VS Comment Clinically the patient is highly suspicious for a partial Achilles tendon rupture of the lower extremity. No obvious Bony deformity. No radiographic evidence of fracture or dislocation. No evidence of compartment syndrome. Placed ankle in splint at 15 plantar flexion. Patient advised to obtain a referral to orthopedics as soon as possible from primary care. Return precautions were given. Patient ambulatory with crutches Time of 1ST Reevaluation: 08:52 Reevaluation 1ST: Improved Patient Education/Counseling: Diagnosis, Treatment Family Education/Counseling: Diagnosis, Treatment Departure 1 Departure Time of Disposition: 08:54 Impression: Primary Impression: Achilles tendinitis, right leg Disposition: 01 HOME / SELF CARE / HOMELESS Condition: Stable e-Prescriptions Ibuprofen Micronized (Ibuprofen) 800 Mg Tab 800 MG PO TIDWM for 14 Days, #42 TAB 0 Refills Prov: AURA GOMEZ GUM PULLER 12/13/24 Discharged With: Self Critical Care Note Critical Care Time?: No Stability Stability form required: No Heart Score Heart Score: Heart Score Response (Comments) Value History N/A 0 EKG N/A 0 Age N/A 0 Risk Factors N/A 0 Troponin N/A 0 Total 0 JASON,AURA F GUM PULLER Dec 13, 2024 08:55
== END 2024-12-13 09:16 | disposition home or self-care (01) ==
LOC: EEVIPCON 07:35 → ER 07:35
DX: M76.61 Achilles tendinitis, right leg (principal); Z79.52 Long term (current) use of systemic steroids; Z79.899 Other long term (current) drug therapy; Z88.0 Allergy status to penicillin
CPT/HCPCS: 29125; 73610

== ENCOUNTER 2025-02-02 14:33 | Emergency (ER) | payer BC, MEDICAID ==
[~2025-02-02] VITALS: Ht 175.3 cm; Wt 104.0 kg
[~2025-02-02 14:33] MED LIST changes: +IBUP-1455 PO
[2025-02-02] MEDS: KETOROLAC TROMETH 60MG/2ML VIAL IM ONE (15:05)
[2025-02-02] MEDS: methylPREDNISolone SOD SUCC 125 MG/2 ML VL IM ONE (15:05)
--- NOTE | 2025-02-02 15:55 | ED.PDOC ---
Musculoskeletal HPI Comments 29-year-old male obese with a pertinent MHx of gout presents with a chief complaint of atraumatic right lower extremity pain x3 weeks. The patient complains of nonradiating localized pain to the right great toe and contributes his pain to his gout. Patient reports he ran out of his gout medication three weeks ago. No other complaints or concerns. Pain is aggravated with ambulation alleviated at rest. Denies any fevers chills nausea vomiting diarrhea. Denies any erythema warmth or swelling to the affected toe Chief Complaint: Lower Extremity Time Seen by MD: 14:46 Primary Care Provider: HELIO Reviewed Notes: Nurses Notes, Medications, Allergies Allergies: Coded Allergies: Penicillins (Verified Allergy, Intermediate, 05/13/19) Home Meds Active Scripts Meclizine HCl (Meclizine) 25 Mg Chw, 25 MG PO Q8HPRN PRN for 5 Days, #10 CHW Prov:RADHA PONCE MD 02/03/25 Ibuprofen Micronized (Ibuprofen) 800 Mg Tab, 800 MG PO TIDWM for 14 Days, #42 TAB 0 Refills Prov:AURA GOMEZ NP 12/13/24 Hydrocodone-Acetaminophen (Hydrocodone Bitartrate/AC 10-325 mg) 1 Tab Tab, 1 TAB PO Q6HPRN PRN, #30 TAB Prov:MARGOTH DELUCA DO 01/04/24 Prednisone (Prednisone) 20 Mg Tab, 40 MG PO DAILY for 5 Days, #10 TAB 0 Refills Prov:AURA GOMEZ NP 12/27/23 Naproxen (NAPROSYN TABLET) 500 Mg Tb, 1 TAB PO BIDPC for 7 Days, #14 TAB 0 Refills Prov:AURA GOMEZ NP 12/27/23 Reported Medications Paroxetine (PAXIL TABLET) 20 Mg Tb, 40 MG PO DAILY, TAB 12/30/21 Information Source: Patient Mode of Arrival: Ambulatory Past Medical History PAST MEDICAL HISTORY: Denies Surgical History: Denies all surgeries Family History Family History: Family hx of DM, Family hx of Cancer, Family hx of HTN Family History (Other): Strong family history of gout Social History Smoker: Non-Smoker Alcohol: Denies ETOH Use Drugs: Denies Drug Use Lives In: Home All Other Systems: Reviewed and Negative (PER HPI) Physical Exam General Appearance: No Apparent Distress, Normal HEENT: Normal ENT Inspection, Pharynx Normal, TMs Normal Neck: Full Range of Motion, Non-Tender, Normal, Normal Inspection Respiratory: Chest Non-Tender, Lungs Clear, No Accessory Muscle Use, No Respiratory Distress, Normal Breath Sounds Cardiovascular: No Edema, No JVD, No Murmur, No Gallop, Normal Peripheral Pulses, Regular Rate/Rhythm Breast Exam: Deferred Gastrointestinal: No Organomegaly, Non Tender, No Pulsatile Mass, Normal Bowel Sounds, Soft Genitalia: Deferred Pelvic: Deferred Rectal: Deferred Extremities: No calf tenderness, Normal capillary refill, Normal inspection, Normal range of motion, Non-tender, No pedal edema Musculoskeletal : Apperance: Normal Neurologic: Alert, founding partner II-XII nml as Tested, No Motor Deficits, Normal Affect, Normal Mood, No Sensory Deficits Cerebellar Function: Normal Reflexes: Normal Skin: Dry, Normal Color, Warm Lymphatic: No Adenopathy Was a procedure done? Was a procedure done?: No Differential Diagnosis EXT Differential Diagnosis: Sprain, Gout, Arthritis, Other X-Ray, Labs, Meds, VS Vital Signs Date Time Temp Pulse Resp B/P (MAP) Pulse Ox O2 Delivery O2 Flow Rate FiO2 02/02/25 15:59 73 17 97 Room Air 02/02/25 15:59 97.8 73 17 124/80 (95) 97 97.8 02/02/25 15:04 97.8 73 17 124/80 (95) 97 97.8 X-Ray, Labs, Meds, VS Comment Differential diagnoses does include hemarthrosis and a septic joint, but their specific symptoms suggest that gout is much more likely. Similar to prior attacks. Doubtful for septic joint given no fever, symptoms similar to prior attacks. Follow-up with primary care doctor in 2-3 days. Return to ER as needed. Patient is stable for discharge at this time. External notes reviewed. Test results and diagnostic imaging interpreted. All diagnostic findings, discharge care, education and instructions provided Follow-up with PCP in 2 to 3 days Patient verbalized understanding and agreed to treatment plan Vital signs stable, afebrile, no acute distress noted Patient ambulatory with strong steady gait Advised to return precautions for any new or worsening symptoms, return to ER immediately for re-evaluation Patient is aware that the purpose of this visit was for an acute medical emergency requiring emergent stabilization. Chronic conditions, including malignancies have not been ruled out. Patient is instructed to follow up with PCP as directed and discharge instructions for continued care and workup. If unable to arrange follow-up, patient is to return to the emergency department for reassessment. Patient (parent or legal guardian if applicable) was given verbal and written discharge instructions and acknowledges understanding. Time of 1ST Reevaluation: 15:54 Reevaluation 1ST: Improved Patient Education/Counseling: Diagnosis, Treatment Family Education/Counseling: Diagnosis, Treatment Departure 1 Departure Time of Disposition: 15:54 Impression: Primary Impression: Acute gout Qualified Codes: M10.9 - Gout, unspecified Disposition: 01 HOME / SELF CARE / HOMELESS Condition: Stable Critical Care Note Critical Care Time?: No Stability Stability form required: No Heart Score Heart Score: Heart Score Response (Comments) Value History N/A 0 EKG N/A 0 Age N/A 0 Risk Factors N/A 0 Troponin N/A 0 Total 0 AURA GOMEZ NP Feb 02, 2025 15:55
[2025-02-02 15:59] VITALS: BP 124/80; PULSE 73; RESP 17; TEMP 97.8; O2SAT 97
[2025-02-03] MEDS ORDERED: MECL25CH38 PO (10:12)
== END 2025-02-02 16:01 | disposition home or self-care (01) ==
LOC: ER 14:33
DX: M10.9 Gout, unspecified (principal); Z88.0 Allergy status to penicillin
CPT/HCPCS: 96372; 99284; J1885; J2919

== ENCOUNTER 2025-02-03 06:25 | Emergency (ER) | payer BC ==
[~2025-02-03] VITALS: Ht 175.3 cm; Wt 104.0 kg
--- NOTE | 2025-02-03 07:15 | ED.PDOC ---
HPI (NEURO) HPI Comments 29-year-old male, with PMHx of Gout presents to the emergency department for chief complaint of dizziness. Patient reports, that he was seen at the emergency department yesterday (02/03/25) for a Gout flare up and received Toradol and Solu-Medrol; since, symptoms have persisted. Patient endorses when standing up he feels unstable and dizzy. Patient comments, "I feel as if the room is spinning". Patient denies headache, nausea, vomiting, or blurred vision. No other symptoms or modifying factors present at this time. Time Seen by MD: 06:33 Primary Care Provider: HELIO Reviewed Notes: Nurses Notes, Medications, Allergies Information Source: Patient Mode of Arrival: Ambulatory Severity: Moderate Dizziness/Weakness Severity: Does not affect activitie Headache Severity: None Timing: Hours Duration: Since onset Prehospital treatment: None Onset: Other (AFTER MEDICATON) Circumstances: Other (FOLLOWING MEDICATION) Before: Normal During: Awake After: Normal Mentation History of: None Modifying factors: Nothing Associated Signs and Symptoms: None Past Medical History PAST MEDICAL HISTORY: Gout Surgical History: Denies all surgeries Family History Family History: Family hx of DM, Family hx of Cancer, Family hx of HTN Family History (Other): Strong family history of gout Social History Smoker: Non-Smoker Alcohol: Denies ETOH Use Drugs: Denies Drug Use Lives In: Home Neurological: reports: dizziness All Other Systems: Reviewed and Negative ( PER HPI) Physical Exam General Appearance: No Apparent Distress, Normal HEENT: Normal ENT Inspection, Pharynx Normal Neck: Full Range of Motion, Non-Tender, Normal, Normal Inspection Respiratory: Chest Non-Tender, Lungs Clear, No Accessory Muscle Use, No Respiratory Distress, Normal Breath Sounds Cardiovascular: No Edema, No Murmur, No Gallop, Normal Peripheral Pulses, Regular Rate/Rhythm Breast Exam: Deferred Gastrointestinal: No Organomegaly, Non Tender, No Pulsatile Mass, Normal Bowel Sounds, Soft Genitalia: Deferred Pelvic: Deferred Rectal: Deferred Extremities: No calf tenderness, Normal capillary refill, Normal inspection, Normal range of motion, Non-tender, No pedal edema Musculoskeletal : Apperance: Normal Neurologic: Alert, straddle carrier operator II-XII nml as Tested, Dizziness, No Sensory Deficits Cerebellar Function: Normal Reflexes: Normal Skin: Dry, Normal Color, Warm Lymphatic: No Adenopathy EKG EKG : Pulse Rate (adult): 86 [place]: Normal Cardiac Rhythm: NSR Block: None Hypertrophy: None ST: Normal Comments diffuse ST elevation Was a procedure done? Was a procedure done?: No Differential Diagnosis (SZ) Seizure: CVA/TIA, Drug Ingestion General Weakness: Anemia, Dehydration, Dysrhythmia, Hypovolemia, Vertigo: central, Vertigo: peripheral X-Ray, Labs, Meds, VS Vital Signs Date Time Temp Pulse Resp B/P (MAP) Pulse Ox O2 Delivery O2 Flow Rate FiO2 02/03/25 08:50 97.8 79 16 113/67 (82) 99 97.8 02/03/25 08:01 86 02/03/25 07:27 86 02/03/25 07:19 98.0 83 18 114/82 (93) 99 98.0 Current Medications Medications (Trade) Dose Ordered Sig/Balaji Route Start Time Stop Time Status Last Admin Meclizine HCl (Antivert Tablet) 50 mg ONCE ONCE PO 02/03/25 07:30 02/03/25 07:31 DC 02/03/25 09:04 Sodium Chloride 1,000 ml @ 1,000 mls/hr Q1H ONCE IV 02/03/25 07:30 02/03/25 08:29 DC 02/03/25 09:00 Ondansetron HCl (Zofran) 4 mg ONCE ONCE IV 02/03/25 07:30 02/03/25 07:31 DC 02/03/25 09:06 29-YEAR-OLD MALE PRESENTS HERE WITH DIZZINESS. HE STATES HE WAS HERE FEW DAYS AGO FOR GOUT AND WAS GIVEN SOLU-MEDROL. STATES SINCE THEN HE HAS BEEN DIZZY AND FEELS THINGS ARE SPINNING. NO HISTORY OF VERTIGO IN THE PAST. I HAVE GIVEN MECLIZINE TODAY 50 MG P.O. AND ZOFRAN IV HE IS FEELING MUCH BETTER. PATIENT HAS BEEN GIVEN 1 L NORMAL SALINE. AT THIS TIME I WILL BE DISCHARGING HIM HOME. ADVISED HIM TO FOLLOW UP WITH HIS PCP IN 2-3 DAYS AND RETURN TO THE ER IF SYMPTOMS WORSEN OR PERSIST. I HAVE GIVEN A PRESCRIPTION FOR MECLIZINE TO HIS PHARMACY. Time of 1ST Reevaluation: 10:12 Reevaluation 1ST: Improved Patient Education/Counseling: Diagnosis, Treatment Family Education/Counseling: No Family Present Departure 1 Departure Time of Disposition: 10:05 Impression: Primary Impression: Vertigo Disposition: 01 HOME / SELF CARE / HOMELESS Condition: Stable Additional Instructions: FOLLOW UP WITH THE PRIMARY CARE PHYSICIAN IN 2-3 DAYS. RETURN TO THE ER IF SYMPTOMS WORSEN OR PERSIST. e-Prescriptions Meclizine HCl (Meclizine) 25 Mg Chw 25 MG PO Q8HPRN PRN for 5 Days, #10 CHW Prov: RADHA PONCE MD 02/03/25 Discharged With: Self Critical Care Note Critical Care Time?: No Stability Stability form required: No Heart Score Heart Score: Heart Score Response (Comments) Value History N/A 0 EKG N/A 0 Age N/A 0 Risk Factors N/A 0 Troponin N/A 0 Total 0 I personally scribed for RADHA PONCE MD ([email or web address]) on 02/03/25 at 08:01. Electronically submitted by Kendra Navarrete ([email or web address]). I personally scribed for RADHA PONCE MD ([email or web address]) on 02/03/25 at 08:24. Electronically submitted by Kendra Navarrete ([email or web address]). RADHA PONCE MD Feb 03, 2025 07:15
[2025-02-03] MEDS: SODIUM CHLORIDE 0.9% 1,000 ML IV ONE (09:00)
[2025-02-03] MEDS: MECLIZINE HCL 25 MG TAB PO ONE (09:04)
[2025-02-03] MEDS: ONDANSETRON HCL 4 MG/2 ML VIAL IV ONE (09:06)
[2025-02-03] MEDS ORDERED: MECL25CH38 PO (10:12)
[2025-02-03 10:45] VITALS: BP 115/67; PULSE 61; RESP 16; TEMP 97.6; O2SAT 100
--- NOTE | 2025-02-05 08:39 | ECG ---
[facility] Test Date: 2025-02-03 Test Time: 07:24:36 Pat Name: LEA CAMPOS Department: ER Room: Gender: Toppiece Cutter: : 1995 Requested By: RADHA PONCE Order Number: [id number] Reading MD: Zain Henderson Measurements Intervals [place] Rate: 86 P: 73 SC: 138 QRS: 88 QRSD: 98 T: 42 QT: 367 QTc: 439 Interpretive Statements Sinus rhythm Biatrial enlargement ST elev, probable normal early repol pattern Consider pericarditis Electronically Signed On 02-08-2025 20:26:45 PDT by Zain Henderson Please click the below link to view image of tracing.
== END 2025-02-03 10:56 | disposition home or self-care (01) ==
LOC: EEVIPCON 06:27 → ER 06:27
DX: R42 Dizziness and giddiness (principal); M10.9 Gout, unspecified
CPT/HCPCS: 82947; 93005; 96361; 96374; 99283; J2405; J7030; J8597